=== PATIENT | female | born 1945 | race Caucasian/White ===

== ENCOUNTER → 2016-12-30 | Outpatient (CLI) | payer MEDICARE ==
[~2016-12-30] MED LIST: ADVI200C5 PO; ALBU83IN INH; AUGM875T27 PO; AZIT500T2 PO; PRED5TA PO; SYMB80INH INH; TIOT18INH INH
[2016-12-30 10:51] LABS: ALBUMIN/GLOBULIN RATIO 1.11 (1.00-1.93); BILIRUBIN,TOTAL 0.4 MG/DL (0.2-1.0); CALCIUM LEVEL 9.1 MG/DL (8.8-10.2); CREATININE FOR GFR 1.06 MG/DL (0.55-1.02); GLOMERULAR FILTRATION RATE 54.4 (>39); POTASSIUM SERUM 4.5 MEQ/L (3.5-5.1); TOTAL PROTEIN 7.6 GM/DL (6.4-8.2)
== END ==
LOC: M LAB 09:05
PROVIDERS: ATTEND Physician Assistant
DX: E78.5 Hyperlipidemia, unspecified (principal); J44.9 Chronic obstructive pulmonary disease, unspecified; E55.9 Vitamin D deficiency, unspecified

== ENCOUNTER → 2017-04-07 | Outpatient (CLI) | payer MEDICARE ==
[2017-04-07 10:17] LABS: ALBUMIN 3.7 GM/DL (3.2-5.2); ALBUMIN/GLOBULIN RATIO 1.03 (1.00-1.93); BILIRUBIN,TOTAL 0.3 MG/DL (0.2-1.0); CALCIUM LEVEL 8.9 MG/DL (8.8-10.2); CREATININE FOR GFR 0.99 MG/DL (0.55-1.02); GLOMERULAR FILTRATION RATE 58.9 (>39); POTASSIUM SERUM 4.9 MEQ/L (3.5-5.1); TOTAL PROTEIN 7.3 GM/DL (6.4-8.2)
== END ==
LOC: M LAB 08:33
PROVIDERS: ATTEND Physician Assistant
DX: E78.5 Hyperlipidemia, unspecified (principal); J44.9 Chronic obstructive pulmonary disease, unspecified; E55.9 Vitamin D deficiency, unspecified

== ENCOUNTER → 2017-06-28 | Outpatient (CLI) | payer MEDICARE ==
[~2017-06-28] MED LIST changes: -AUGM875T27 PO; +AUGM875T28 PO
[2017-06-28 07:07] LABS: BASO # 0.1 K/mm3 (0.0-0.2); BASO % 0.6 % (0.0-1.0); EOS # 0.3 K/mm3 (0.0-0.50); EOS % 2.6 % (0.0-3.0); LARGE UNSTAINED CELL # 0.2 K/mm3 (0.0-0.4); LARGE UNSTAINED CELL % 1.8 % (0.0-4.0); LYMPH # 2.2 K/mm3 (1.5-4.5); LYMPH % 16.9 % (24.0-44.0); MEAN CORPUSCULAR HEMOGLOBIN 29.4 pg (27.0-33.0); MEAN CORPUSCULAR HGB CONC 32.7 g/dl (32.0-36.5); MEAN CORPUSCULAR VOLUME 89.9 fl (80.0-96.0); MONO # 0.6 K/mm3 (0.0-0.8); MONO % 4.7 % (0.0-5.0); NEUTROPHILS # 8.7 K/mm3 (1.8-7.7); NEUTROPHILS % 73.3 % (36.0-66.0); PLATELET COUNT, AUTOMATED 365 k/mm3 (150-450); RED CELL DISTRIBUTION WIDTH 13.2 % (11.5-14.5); WHITE BLOOD COUNT 11.8 K/mm3 (4.0-10.0)
[2017-06-28 07:45] LABS: ALBUMIN 3.4 GM/DL (3.2-5.2); ALBUMIN/GLOBULIN RATIO 0.85 (1.00-1.93); ALKALINE PHOSPHATASE 134 U/L (45-117); ALT/SGPT 21 U/L (12-78); ANION GAP 7 MEQ/L (8-16); AST/SGOT 10 U/L (15-37); BILIRUBIN,TOTAL 0.4 MG/DL (0.2-1.0); BLOOD UREA NITROGEN 18 MG/DL (7-18); CALCIUM LEVEL 8.8 MG/DL (8.8-10.2); CARBON DIOXIDE LEVEL 29 MEQ/L (21-32); CHLORIDE LEVEL 102 MEQ/L (98-107); CHOLESTEROL LEVEL 116 MG/DL (<200); CREATININE FOR GFR 0.97 MG/DL (0.55-1.02); FREE T4 0.97 NG/DL (0.76-1.46); GLOMERULAR FILTRATION RATE > 60.0 (>39); GLUCOSE, FASTING 88 MG/DL (83-110); POTASSIUM SERUM 4.6 MEQ/L (3.5-5.1); SODIUM LEVEL 138 MEQ/L (136-145); TOTAL PROTEIN 7.4 GM/DL (6.4-8.2); TRIGLYCERIDES LEVEL 218 MG/DL (<150)
--- NOTE | 2017-06-28 08:54 | REP ---
CT study of the chest without IV contrast: History: Multiple pulmonary nodules. Comparison chest CT study is from February 19, 2015. July 21, 2014 prior study is also reviewed. The 2015 study showed a 3 mm nodule in the right lower lobe. CT findings: The previously noted right lower lobe nodule is no longer visible. There is no evidence of pleural or pericardial effusion. Minimal subsegmental discoid atelectatic changes are seen in the lung bases bilaterally. There are emphysematous changes in the upper lobes, right more so than left unchanged. No new infiltrate, mass, or pulmonary nodule is appreciated. There is minimal vascular calcification. One or two scattered stable normal-sized mediastinal lymph nodes are again seen. No adrenal lesion is observed. The visualized upper abdominal structures are unremarkable. There is a sliding type hiatal hernia again noted unchanged. No bony destructive lesion is appreciated. Impression: No active cardiopulmonary disease. Previously noted right lower lobe nodule no longer visible. Small sliding-type hiatal hernia. Signed by Nic Allan MD 06/28/2017 10:15 A
== END ==
LOC: M LAB 06:54
PROVIDERS: ATTEND Physician Assistant
DX: Z13.29 Encounter for screening for other suspected endocrine disorder (principal); E78.5 Hyperlipidemia, unspecified; E55.9 Vitamin D deficiency, unspecified; R91.8 Other nonspecific abnormal finding of lung field; K44.9 Diaphragmatic hernia without obstruction or gangrene

== ENCOUNTER → 2017-08-30 | Outpatient (CLI) | payer MEDICARE ==
[2017-08-30 13:53] LABS: BASO # 0.1 10^3/uL (0.0-0.2); BASO % 0.5 % (0.0-1.0); EOS # 0.4 10^3/uL (0.0-0.50); EOS % 3.5 % (0.0-3.0); IMMATURE GRANULOCYTE % 0.7 % (0-0); LYMPH # 2.9 10^3/uL (1.5-4.5); LYMPH % 26.1 % (24.0-44.0); MEAN CORPUSCULAR HEMOGLOBIN 32.2 pg (27.0-33.0); MEAN CORPUSCULAR HGB CONC 34.7 g/dl (32.0-36.5); MEAN CORPUSCULAR VOLUME 92.8 fl (80.0-96.0); MONO # 0.9 10^3/uL (0.0-0.8); MONO % 7.9 % (0.0-5.0); NEUTROPHILS # 6.7 10^3/uL (1.8-7.7); NEUTROPHILS % 61.3 % (36.0-66.0); PLATELET COUNT, AUTOMATED 393 10^3/uL (150-450); RED CELL DISTRIBUTION WIDTH 14.6 % (11.5-14.5)
[2017-08-30 14:14] LABS: ERYTHROCYTE SEDIMENTATION RATE 69 mm/hr (0-30)
[2017-08-30 14:18] LABS: ALBUMIN 3.5 GM/DL (3.2-5.2); ALBUMIN/GLOBULIN RATIO 0.81 (1.00-1.93); ALKALINE PHOSPHATASE 129 U/L (45-117); ALT/SGPT 33 U/L (12-78); ANION GAP 7 MEQ/L (8-16); AST/SGOT 19 U/L (7-37); BILIRUBIN,TOTAL 0.2 MG/DL (0.2-1.0); BLOOD UREA NITROGEN 16 MG/DL (7-18); CALCIUM LEVEL 9.5 MG/DL (8.8-10.2); CARBON DIOXIDE LEVEL 32 MEQ/L (21-32); CHLORIDE LEVEL 101 MEQ/L (98-107); GLOMERULAR FILTRATION RATE > 60.0 (>39); GLUCOSE, FASTING 77 MG/DL (83-110); POTASSIUM SERUM 4.6 MEQ/L (3.5-5.1); SODIUM LEVEL 140 MEQ/L (136-145); TOTAL PROTEIN 7.8 GM/DL (6.4-8.2)
[2017-09-01 00:07] LABS: Lyme Disease IgG/IgM Antibodie <0.91 ISR (0.00-0.90); Lyme Disease IgM Ab Quantitati <0.80 index (0.00-0.79)
== END ==
LOC: M LAB 13:04
PROVIDERS: ATTEND Physician Assistant
DX: M79.1 Myalgia (principal)

== ENCOUNTER → 2017-08-31 | Outpatient (CLI) | payer MEDICARE ==
[2017-08-31 14:49] LABS: FREE T4 0.97 NG/DL (0.76-1.46)
== END ==
LOC: M LAB 13:19
PROVIDERS: ATTEND Physician Assistant
DX: M79.1 Myalgia (principal)

== ENCOUNTER → 2017-09-13 | Outpatient (CLI) | payer MEDICARE | LOC: M LAB 12:58 | PROVIDERS: ATTEND Family Medicine | DX: M79.1 Myalgia (principal); E55.9 Vitamin D deficiency, unspecified | CPT/HCPCS: 36415; 82306; 82550; 86038; 86200; 86431; G0463 ==

== ENCOUNTER → 2017-09-27 | Outpatient (CLI) | payer MEDICARE ==
--- NOTE | 2017-09-27 17:25 | REP ---
Chest x-ray: Two views. History: Muscle weakness. Comparison chest x-ray: July 21, 2014. Findings: The lungs are symmetrically aerated and clear. Cardiomediastinal silhouette is unremarkable and unchanged. There are mild degenerative changes in the thoracic spine. Pulmonary vasculature is not increased. No significant bony abnormality is seen. Impression: No active disease. Signed by Nic Allan MD 09/28/2017 08:16 A
== END ==
LOC: M ADAMS 15:58
PROVIDERS: ATTEND Family Medicine
DX: M62.81 Muscle weakness (generalized) (principal)

== ENCOUNTER → 2017-09-27 | Outpatient (REF) | payer MEDICARE | LOC: M SFHCADAM 15:53 | PROVIDERS: ATTEND Family Medicine | DX: M62.81 Muscle weakness (generalized) (principal) ==

== ENCOUNTER → 2017-11-13 | Outpatient (REF) | payer MEDICARE ==
[2017-11-13 14:25] LABS: TOTAL 25(OH) VITAMIN D 25.5 NG/ML (30.0-100.0); VITAMIN B12 LEVEL 395 PG/ML
[2017-11-13 14:26] LABS: FOLATE 9.8 NG/ML
[2017-11-13 14:34] LABS: ALBUMIN 4.1 GM/DL (3.2-5.2); ALBUMIN/GLOBULIN RATIO 0.98 (1.00-1.93); ALKALINE PHOSPHATASE 120 U/L (45-117); ALT/SGPT 25 U/L (12-78); ANION GAP 10 MEQ/L (8-16); AST/SGOT 15 U/L (7-37); BILIRUBIN,TOTAL 0.3 MG/DL (0.2-1.0); BLOOD UREA NITROGEN 18 MG/DL (7-18); CALCIUM LEVEL 9.5 MG/DL (8.8-10.2); CARBON DIOXIDE LEVEL 26 MEQ/L (21-32); CHLORIDE LEVEL 101 MEQ/L (98-107); CREATININE FOR GFR 0.87 MG/DL (0.55-1.30); FREE THYROXINE INDEX 3.1 % (1.3-4.8); GLOMERULAR FILTRATION RATE > 60.0 (>39); GLUCOSE, FASTING 88 MG/DL (70-100); POTASSIUM SERUM 4.3 MEQ/L (3.5-5.1); RHEUMATOID FACTOR QUANT < 10.0 IU/ML (0-15.0); SODIUM LEVEL 137 MEQ/L (136-145); T UPTAKE 33 % (30-39); THYROXINE (T4) 9.4 UG/DL (4.5-12.0); TOTAL PROTEIN 8.3 GM/DL (6.4-8.2)
[2017-11-13 14:39] LABS: ESTIMATED AVERAGE GLUCOSE 120 MG/DL (60-110); HEMOGLOBIN A1c 5.8 %
[2017-11-13 16:27] LABS: ERYTHROCYTE SEDIMENTATION RATE 39 mm/hr (0-30)
[2017-11-15 11:51] LABS: ALBUMIN 4.38 GM/DL (3.29-5.55); ALBUMIN % 52.8 % (55.8-66.1)
[2017-11-15 11:52] LABS: ALPHA-1-GLOBULIN % 4.5 % (2.9-4.9); ALPHA-1-GLOBULINS 0.37 GM/DL (0.17-0.41); ALPHA-2-GLOBULINS 0.81 GM/DL (0.42-0.99); ALPHA-2-GLOBULINS % 9.7 % (7.1-11.8); BETA-1-GLOBULINS 0.51 GM/DL (0.28-0.60); BETA-1-GLOBULINS % 6.2 % (4.7-7.2); BETA-2-GLOBULINS 0.51 GM/DL (0.19-0.55); BETA-2-GLOBULINS % 6.2 % (3.2-6.5); GAMMA GLOBULIN % 20.6 % (11.1-18.8); GAMMA GLOBULINS 1.71 GM/DL (0.65-1.58)
[2017-11-17 00:08] LABS: ALDOLASE 7.2 U/L (3.3-10.3); ANTI DOUBLE STRAND-DNA AB 1 IU/mL (0-9); ANTI-HISTONE ANTIBODIES 1.3 Units (0.0-0.9); ANTINUCLEAR ANTIBODIES DIRECT Negative (Negative); CERULOPLASMIN 33.4 mg/dL (19.0-39.0); COPPER PLASMA 113 ug/dL (72-166); LEAD BLOOD ADULT 5 ug/dL (0-19); MERCURY LEVEL None Detected ug/L (0.0-14.9); RNP ANTIBODIES 0.3 AI (0.0-0.9); SJOGREN'S ANTI SS-A <0.2 AI (0.0-0.9); SJOGREN'S ANTI SS-B <0.2 AI (0.0-0.9); SMITH ANTIBODIES <0.2 AI (0.0-0.9); VITAMIN B1 LEVEL WHOLE BLOOD 139.2 nmol/L (66.5-200.0); VITAMIN B6,PYRIDOXAL PHOSPHATE 5.2 ug/L (2.0-32.8); VITAMIN E LEVEL 12.1 mg/L (6.5-21.5)
== END ==
LOC: M LABNEURO 13:22
DX: G62.9 Polyneuropathy, unspecified (principal); E55.9 Vitamin D deficiency, unspecified; R53.83 Other fatigue; M62.81 Muscle weakness (generalized); R73.01 Impaired fasting glucose
CPT/HCPCS: 82525

== ENCOUNTER → 2018-01-10 | Outpatient (REF) | payer MEDICARE | LOC: M SFHCADAM 11:28 | DX: R94.6 Abnormal results of thyroid function studies (principal) ==

== ENCOUNTER → 2018-01-12 | Outpatient (CLI) | payer MEDICARE ==
[2018-01-12 09:43] LABS: FREE T4 1.02 NG/DL (0.76-1.46)
== END ==
LOC: M LAB 08:24
DX: R94.6 Abnormal results of thyroid function studies (principal)
CPT/HCPCS: 84443

== ENCOUNTER → 2018-12-11 | Outpatient (CLI) | payer MEDICARE ==
[~2018-12-11] MED LIST changes: +ADVI100T PO; +ASPI1TAB PO; +BENA25CA4 PO; +CLAR1TAB13 PO; +IBUP200C25 PO; +METO37.5 PO; +NITR0.4S14 SL; +PLAV1TAB2 PO; +TUMS500C PO; +VITA200015 PO; +VITA200016 PO
--- NOTE | 2018-12-13 15:10 | DEXA ---
AP SPINE L1 - L4 1.076 -1.0 0.8 LT FEMUR TOTAL 0.952 -0.4 1.2 LT NECK 0.811 -1.6 0.2 RT FEMUR TOTAL 0.963 -0.4 1.3 RT NECK 0.947 -0.7 1.2 TOTAL BODY TOTAL OTHER COMMENTS: Normal bone densitometry of the right hip. There is low bone density of the spine. There is low bone density of the left hip. FOLLOW-UP: Recommendation for the next bone density exam: 2 years. MICHAEL
== END ==
LOC: M WHC 14:50
PROVIDERS: ATTEND Family Medicine
DX: M85.9 Disorder of bone density and structure, unspecified (principal); E55.9 Vitamin D deficiency, unspecified; Z79.899 Other long term (current) drug therapy

== ENCOUNTER 2018-12-16 01:20 | Emergency (ER) | payer MEDICARE ==
[~2018-12-16] VITALS: Ht 149.9 cm; Wt 87.6 kg
[~2018-12-16 01:20] MED LIST changes: -ADVI100T PO; -ASPI1TAB PO; -BENA25CA4 PO; -CLAR1TAB13 PO; -IBUP200C25 PO; -METO37.5 PO; -NITR0.4S14 SL; -PLAV1TAB2 PO; -TUMS500C PO; -VITA200015 PO; -VITA200016 PO
[2018-12-16 01:49] LABS: BASO # 0.1 10^3/uL (0.0-0.2); BASO % 0.6 % (0.0-1.0); EOS # 0.2 10^3/uL (0.0-0.50); EOS % 1.5 % (0.0-3.0); HEMATOCRIT 40.4 % (36.0-47.0); LYMPH % 16.3 % (24.0-44.0); MEAN CORPUSCULAR HEMOGLOBIN 28.2 pg (27.0-33.0); MEAN CORPUSCULAR HGB CONC 32.2 g/dl (32.0-36.5); MEAN CORPUSCULAR VOLUME 87.6 fl (80.0-96.0); MONO # 0.8 10^3/uL (0.0-0.8); MONO % 6.5 % (0.0-5.0); NEUTROPHILS # 9.2 10^3/uL (1.8-7.7); NEUTROPHILS % 74.6 % (36.0-66.0); PLATELET COUNT, AUTOMATED 350 10^3/uL (150-450); RED BLOOD COUNT 4.61 10^6/uL (4.00-5.40); WHITE BLOOD COUNT 12.3 10^3/uL (4.0-10.0)
[2018-12-16 02:12] LABS: CALCIUM LEVEL 9.9 MG/DL (8.8-10.2); CREATININE FOR GFR 1.13 MG/DL (0.55-1.30); GLOMERULAR FILTRATION RATE 50.2 (>39); MB/CK RELATIVE INDEX 1.17 (< OR =4); POTASSIUM SERUM 4.2 MEQ/L (3.5-5.1); TROPONIN I 0.11 NG/ML (< 0.10)
[2018-12-16] MEDS ORDERED: HEPARIN DRIP 25,000 UNITS in APPROPRIATE DILUENT 1 EA IV SCH (02:26)
[2018-12-16] MEDS ORDERED: METOPROLOL 5 MG/5 ML VIAL IV STA ×2 (02:26→02:36)
[2018-12-16] MEDS ORDERED: CLOPIDOGREL 300 MG TAB (PLAVIX) PO STA (02:26)
[2018-12-16] MEDS ORDERED: HEPARIN SOD (PORCINE) 5000 UNITS/ML VIAL IV ONE (02:30)
[2018-12-16] MEDS ORDERED: ASPIRIN 325 MG TAB PO ONE (02:30)
[2018-12-16] MEDS ORDERED: ASPIRIN 81 MG CHEW TABLET As Ordered ONE (02:31)
[2018-12-16 02:36] LABS: INR 0.92; PROTHROMBIN TIME 12.5 SECONDS (12.1-14.4)
[2018-12-16 02:37] LABS: PARTIAL THROMBOPLASTIN TIME 29.3 SECONDS (25.4-37.6)
[2018-12-16] MEDS ORDERED: ASPIRIN 81 MG CHEW TABLET PO ONE (02:45)
[2018-12-16] MEDS ORDERED: NITROGLYCERIN 2% OINT 1 GM *U/D* PKT TOP ONE (02:45)
[2018-12-16] MEDS ORDERED: METOPROLOL TART 25 MG TABLET PO ONE (02:45)
[2018-12-16 02:46] VITALS: BP 159/67
[2018-12-16] MEDS ORDERED: VITA200015 PO (02:54)
[2018-12-16] MEDS ORDERED: ADVI100T PO (02:54)
[2018-12-16] MEDS ORDERED: IBUP200C25 PO (02:56)
[2018-12-16] MEDS ORDERED: CLAR1TAB13 PO (02:56)
[2018-12-16 06:33] VITALS: BP 141/80
--- NOTE | 2018-12-16 06:33 | ECGEPIP ---
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
--- NOTE | 2018-12-16 07:18 | REP ---
Clinical: Acute chest pain . Comparison: 09/27/2017 or . Findings: The mediastinum and cardiac silhouette are stable and within normal limits for portable technique. The lung valdez are clear without acute consolidation, effusion, or pneumothorax. Skeletal structures are intact. Impression: No acute cardiopulmonary process appreciated. Electronically Signed by Natanael Zeng MD 12/16/2018 07:10 A
[2018-12-18] MEDS ORDERED: ASPI1TAB PO (06:54)
== END 2018-12-16 06:41 | disposition short-term general hospital (02) ==
LOC: M ED 01:20
DX: I21.4 Non-ST elevation (NSTEMI) myocardial infarction (principal); R00.0 Tachycardia, unspecified; J44.9 Chronic obstructive pulmonary disease, unspecified; Z87.891 Personal history of nicotine dependence; Z88.8 Allergy status to other drugs, medicaments and biological substances; Z79.899 Other long term (current) drug therapy; Z79.51 Long term (current) use of inhaled steroids

== ENCOUNTER 2018-12-18 06:36 | Emergency (ER) | payer MEDICARE ==
[~2018-12-18] VITALS: Ht 149.9 cm; Wt 81.8 kg
[~2018-12-18 06:36] MED LIST changes: +ADVI100T PO; +CLAR1TAB13 PO; +IBUP200C25 PO; +VITA200015 PO
[2018-12-18] MEDS ORDERED: NITR0.4S14 SL (06:54)
[2018-12-18] MEDS ORDERED: TUMS500C PO (06:54)
[2018-12-18] MEDS ORDERED: BENA25CA4 PO (06:54)
[2018-12-18] MEDS ORDERED: METO37.5 PO (06:54)
[2018-12-18] MEDS ORDERED: ASPI81TA26 PO (06:54)
[2018-12-18] MEDS ORDERED: VITA200016 PO (06:54)
[2018-12-18] MEDS ORDERED: PLAV1TAB2 PO (06:54)
[2018-12-18 07:37] LABS: BASO # 0.1 10^3/uL (0.0-0.2); BASO % 0.6 % (0.0-1.0); EOS # 0.3 10^3/uL (0.0-0.50); EOS % 2.5 % (0.0-3.0); HEMATOCRIT 38.3 % (36.0-47.0); HEMOGLOBIN 12.5 g/dl (12.0-15.5); LYMPH # 2.4 10^3/uL (1.5-4.5); MEAN CORPUSCULAR HEMOGLOBIN 28.3 pg (27.0-33.0); MEAN CORPUSCULAR HGB CONC 32.6 g/dl (32.0-36.5); MEAN CORPUSCULAR VOLUME 86.8 fl (80.0-96.0); MONO # 0.9 10^3/uL (0.0-0.8); MONO % 7.5 % (0.0-5.0); NEUTROPHILS # 8.8 10^3/uL (1.8-7.7); PLATELET COUNT, AUTOMATED 351 10^3/uL (150-450); RED BLOOD COUNT 4.41 10^6/uL (4.00-5.40); WHITE BLOOD COUNT 12.6 10^3/uL (4.0-10.0)
[2018-12-18 07:48] LABS: INR 0.98; PROTHROMBIN TIME 13.1 SECONDS (12.1-14.4)
[2018-12-18 07:49] LABS: PARTIAL THROMBOPLASTIN TIME 29.8 SECONDS (25.4-37.6)
[2018-12-18 07:57] LABS: CALCIUM LEVEL 8.4 MG/DL (8.8-10.2); CREATININE FOR GFR 1.09 MG/DL (0.55-1.30); GLOMERULAR FILTRATION RATE 52.4 (>39); POTASSIUM SERUM 4.8 MEQ/L (3.5-5.1)
--- NOTE | 2018-12-18 09:08 | REP ---
RIGHT UPPER EXTREMITY DUPLEX DOPPLER ARTERIAL ULTRASOUND: Real-time ultrasound evaluation and duplex Doppler interrogation of the right upper extremity arterial system performed. The patient had a cardiac catheter procedure 12/16/2018 and has swelling and pain. In the right wrist, the hematoma measuring 9 x 3 x 7 mm at the radial artery insertion site. All of the arteries of the upper extremity are patent with no stenosis of occlusion. Triphasic waveforms are seen throughout. Normal flow velocities are seen throughout with peak systolic velocity in the subclavian artery 128.4 cm/s, axillary artery 89.9 cm/s, brachial artery 87.6 cm/s, radial artery 49.6 cm/s and ulnar artery 85.8 cm/s. Incidental note is made of superficial thrombus in a portion of the basilic vein. IMPRESSION: Small hematoma at the radial artery catheter insertion site 9 x 3 x 7 mm. No arterial stenosis or occlusion. Superficial thrombus basilic vein incidentally noted. No pseudoaneurysm. Electronically Signed by Yuniel Merrill MD 12/18/2018 08:30 P
[2018-12-18 09:43] VITALS: BP 101/59
== END 2018-12-18 09:45 | disposition home or self-care (01) ==
LOC: M ED 06:36
DX: I97.630 Postprocedural hematoma of a circulatory system organ or structure following a cardiac catheterization (principal); I82.611 Acute embolism and thrombosis of superficial veins of right upper extremity; J44.9 Chronic obstructive pulmonary disease, unspecified; I25.10 Atherosclerotic heart disease of native coronary artery without angina pectoris; Z87.891 Personal history of nicotine dependence; Z88.8 Allergy status to other drugs, medicaments and biological substances; Z79.82 Long term (current) use of aspirin; Z79.899 Other long term (current) drug therapy

== ENCOUNTER → 2019-01-25 | Outpatient (CLI) | payer MEDICARE ==
[~2019-01-25] MED LIST changes: +ASPI81TA26 PO; +BENA25CA4 PO; +METO37.5 PO; +NITR0.4S14 SL; +PLAV1TAB2 PO; +TUMS500C PO; +VITA200016 PO
[2019-01-25 09:20] LABS: BASO # 0.1 10^3/uL (0.0-0.2); BASO % 0.6 % (0.0-1.0); EOS # 0.2 10^3/uL (0.0-0.50); HEMOGLOBIN 12.3 g/dl (12.0-15.5); LYMPH # 1.7 10^3/uL (1.5-4.5); LYMPH % 20.9 % (24.0-44.0); MEAN CORPUSCULAR HEMOGLOBIN 30.4 pg (27.0-33.0); MEAN CORPUSCULAR HGB CONC 33.2 g/dl (32.0-36.5); MEAN CORPUSCULAR VOLUME 91.4 fl (80.0-96.0); MONO # 0.6 10^3/uL (0.0-0.8); NEUTROPHILS # 5.3 10^3/uL (1.8-7.7); PLATELET COUNT, AUTOMATED 330 10^3/uL (150-450); RED BLOOD COUNT 4.05 10^6/uL (4.00-5.40); WHITE BLOOD COUNT 7.9 10^3/uL (4.0-10.0)
[2019-01-25 09:44] LABS: ALBUMIN 3.9 GM/DL (3.2-5.2); BILIRUBIN,TOTAL 0.4 MG/DL (0.2-1.0); CALCIUM LEVEL 9.1 MG/DL (8.8-10.2); CHOLESTEROL RISK RATIO 5.518 (<5); CREATININE FOR GFR 1.13 MG/DL (0.55-1.30); GLOMERULAR FILTRATION RATE 50.2 (>39); POTASSIUM SERUM 4.6 MEQ/L (3.5-5.1); TOTAL PROTEIN 7.7 GM/DL (6.4-8.2)
== END ==
LOC: M LAB 08:35
PROVIDERS: ATTEND Family Medicine
DX: J44.9 Chronic obstructive pulmonary disease, unspecified (principal); E78.5 Hyperlipidemia, unspecified; E66.9 Obesity, unspecified

== ENCOUNTER → 2019-01-25 | Outpatient (CLI) | payer MEDICARE ==
[2019-01-25 09:41] LABS: CALCIUM LEVEL 9.1 MG/DL (8.8-10.2); CHOLESTEROL RISK RATIO 5.464 (<5); CREATININE FOR GFR 1.15 MG/DL (0.55-1.30); GLOMERULAR FILTRATION RATE 49.2 (>39); POTASSIUM SERUM 4.6 MEQ/L (3.5-5.1)
== END ==
LOC: M LAB 08:30
PROVIDERS: ATTEND Internal Medicine Interventional Cardiology
DX: E78.5 Hyperlipidemia, unspecified (principal)

== ENCOUNTER → 2019-03-05 | Outpatient (CLI) | payer MEDICARE ==
[~2019-03-05] MED LIST changes: +CALC500T68 PO; +OYST1TAB PO
--- NOTE | 2019-03-05 13:34 | PFTRPT ---
Height: 60.00 Inches Weight: 186.00 Lbs BSA: 1.81 Diagnosis: R53.83 DATE OF PROCEDURE: 03/05/2019 ORDERED BY: Tamy Jc DO Spirometry: Study of excellent technical quality. Some difficulty with the required maneuvers noted. Forced vital capacity borderline. FEV1 in proportion. Obstructive index is, therefore, normal. Flow Volume Loop: Expiratory limb of the flow volume loop is reasonably normal. Lung Volumes: Total lung capacity elevated. Residual volume is reduced and does not correct for alveolar volume. Diffusing Capacity: Reduced and does not correct for alvealor volume. Hemoglobin: No hemoglobin available for correction. Airway Mechanics: Airway resistance and conductance are normal. IMPRESSION: Nonspecific limitation with diffusing capacity impairment. Cannot rule out air trapping. Please correlate clinically. DATE OF PROCEDURE: 03/05/2019 ORDERED BY: Tamy Jc DO Spirometry: Study of excellent technical quality. Forced vital capacity borderline. FEV1 in proportion. Obstructive index is, therefore, normal. Flow Volume Loop: Expiratory limb of the flow volume loop is with some borderline abnormalities. Lung Volumes: Total lung capacity mildly elevated. Residual volume suggests air trapping. Diffusing Capacity: Diffusing capacity is mildly reduced and does not correct for alveolar volume. Hemoglobin: No hemoglobin available for correction. Airway Mechanics: Airways resistance and conductance are normal. IMPRESSION: Borderline study with a degree of suspected air trapping and abnormal diffusion requires clinical correlation. MTDD
--- NOTE | 2019-03-07 09:08 | PULFX ---
DATE OF PROCEDURE: 03/05/2019 ORDERED BY: Tamy Ryder. Study of excellent technical quality. Some difficulty with required maneuvers noted. Forced vital capacity borderline. FEV1 is in proportion, obstructive index is therefore normal. Expiratory limb of the flow volume loop is reasonably normal. Total lung capacity elevated. Residual volume is reduced and does not correct for alveolar volume. No hemoglobin available for correction. Air resistance and conductance are normal. IMPRESSION: Nonspecific limitation with diffusing capacity impairment. Cannot rule out air trapping. Please correlate clinically.
== END ==
LOC: M CARPUL 09:46
PROVIDERS: ATTEND Family Medicine
DX: R53.83 Other fatigue (principal)

== ENCOUNTER → 2019-03-14 | Outpatient (RCR) | payer MEDICARE ==
--- NOTE | 2019-02-26 15:44 | CARECAPL ---
Assessment Account #s: Initial Assessment General Diagnoses: Stent, NSTEMI Date of event: Dec 24, 2018 Physician: PORFIRIO RUSSO DO Allergies: Coded Allergies: MS - Statins (Verified Allergy, Severe, 12/16/18) Uncoded Allergies: oranges (Allergy, Severe, hives, 12/18/18) pt unable to have orange flavored medication Date Entered Program: February 26, 2019 Risk strat for cardiac event: Low Exercise Date: February 26, 2019 Assessment: Initial Assessment Exercise Prescription Plan TO EDUCATE AND BUILD ENDURANCE THROUGH MONITORED EXERCISE Modalities initiated: Treadmill (WILL ADD), Nustep (WILL ADD), Arm Aerometer (WILL ADD), Dumbells (WILL ADD), Recumbent Bike (WILL ADD) Frequency: 3 Duration (Minutes) 30-60 minutes total exercise a day. 10-12 MIN work intervals in minutes. 5 MIN PRN rest intervals in minutes. Functional Capacity Goal Sustained Metabolic Equivalent of a task (MET) goal of 2.0-3.0 for 15-20 minutes. Intensity: 3-Moderate Progression (METS) Increase by: 0.5 METS every: 3-5 sessions Angina with ex: No Target Heart Rate RATE +35-40 BASED ON BETA JIM THERAPY Resistance Training: Yes Weight (pounds): 1 Reps: 8-12 Hypertension: Yes Hypertension controlled with: Medication Resting 180/83 Peak Exercise BP NOT EXERCISED TODAY Medications Scheduled Aspirin (Aspirin EC), 1 TAB PO DAILY, (Reported) Budesonide/Formoterol (Symbicort 80-4.5 Mcg Inhaler), 2 PUFF INH BID, (Reported) Calcium Carbonate (Calcium), 500 MG PO DAILY, (Reported) Cholecalciferol (Vitamin D3) (Vitamin D3), 2,000 UNIT PO DAILY, (Reported) Clopidogrel Bisulfate (Plavix), 75 MG PO DAILY, (Reported) Diphenhydramine HCl (Benadryl), 25 MG PO QPM, (Reported) Loratadine/Pseudoephedrine (Claritin-D 24 Hour Tablet), 1 TAB PO DAILY, (Reported) Metoprolol Tartrate (Metoprolol Tartrate), 25 MG PO BID, (Reported) Nitroglycerin (Nitroglycerin), 0.4 MG SL ASDIRECTED, (Reported) Tiotropium [place] Monohydrate (Spiriva), 1 INHALATION INH DAILY, (Reported) Scheduled PRN Albuterol Sulf (Albuterol Sulfate), 1 INH INH Q2H PRN for SHORTNESS OF BREATH, (Reported) Calcium Carbonate (Tums), 1-2 TAB PO Q4-6HP PRN for INDIGESTION, (Reported) Discontinued Medications Calcium Carbonate (Calcium), 500 MG PO DAILY, (Reported) Discontinued Reason: Re-entering as new Calcium Carbonate (Calcium), 500 MG PO DAILY, (Reported) Discontinued Reason: Pt states not taking Cholecalciferol (Vitamin D3) (Vitamin D3), 1 CAP PO DAILY, (Reported) Discontinued Reason: Pt states not taking Ibuprofen (Ibuprofen), 200 MG PO Q8H PRN for PAIN, (Reported) Discontinued Reason: Pt states not taking Med Change: No Intervention Resistance Training: Yes Education: Self pulse, Ex safety, S/S to report, Low NA diet, BP medication, RPE Scale, Equipment orientation, warm up/cool down, Understand BP, Physical Active Target Goals Individual exercise Rx (1) BP 140/90 or 130/80 if DM or CKD (1) Aerobic active 30+min 5 days per week (1) Nutrition Date: February 26, 2019 Assessment: Initial Assessment Lipid- med/supplement NONE Med Change: No Diabetes Diabetes: No Monitor Blood Sugar at home: No Medication Change: No Weight Management Weight (lbs): 189.2 Height (inches): 60 Waist Circumference (Inches): 46.5 BMI: 36.9 Weight goal: 135 Special Diet: low salt, low-fat Vitamin/Supplements: Multivitamin, Vitamin D Alcohol: none Diet Access Tool: Rate your plate Score: 63 Current Weight (pounds): 189.2 Weight Goal 135 Intervention Packing Room Supervisor Consult: No Nurse/patient discussion: Yes Dietary Goals TO MAKE HEART HEALTHY CHOICES Diet Class: Yes Referral to Diabetes education: No Referral to lipid clinic: No Referral to weight mangement p: No Education Eating Healthy Target goal LDL-C<100 if triglycerides are >200 Non-HDL-C should be <130 (1) LDL-C<70 for high risk patients (4) HbA1c<7% (1) BMI<25 Waist cir<40in M/<35in F (1) Education Date: February 26, 2019 Assessment: Initial Assessment Learning Barriers: ready Knowledge Test Score: 7 Family Support: Yes Tobacco use: No (SMOKED 1 PPD X 40 YEARS) Tobacco Use Date quit: May 15, 2017 Smokeless tobacco: No Intervention Referral to smoking cessation: No Individual education and couns: No Tobacco Adjunct: No Education class schedule given: No Attended education classes: No Education: tobacco triggers, CAD, Risk factors, med compliance, cardiac A&P, Angina S/S, Sexuality Target Goals Complete cessation of tobacco use (1). Psychosocial Date: February 26, 2019 Assessment: Initial Assessment Psych Test (Initial/Discharge) Tool Used: CESD Score: 0 Intervention Physician Consult: No Physician Referral: No Med Change: No Stress Management Class: No Uses Stress Management Skills: Yes Education Education: Coping Techniques, S/S depression, Relaxation Techniques Target Goal Assess presence or absence of depression using a valid screening tool (1). Maximize coping skills (2). Positive support system (2). Patient/Program Goal Preventative Medication: Yes Aspirin, Yes Clopidogrel, Yes Beta blockade Fall Risk Assess: Yes (NOT FALL RISK) Provider Assessment Session Number: 1 Provider Assessment: Proceed with rehab Jimmy Mas RN February 26, 2019 15:44
== END ==
LOC: M CR 02-26 14:11
PROVIDERS: ATTEND Family Medicine
DX: I21.4 Non-ST elevation (NSTEMI) myocardial infarction (principal)

== ENCOUNTER 2019-04-10 15:30 | Outpatient (RCR) | payer MEDICARE ==
--- NOTE | 2019-03-24 15:07 | CARECAPL ---
Assessment Account #s: Re-Assessment I General Diagnoses: Stent, NSTEMI Date of event: Dec 24, 2018 Physician: PORFIRIO RUSSO DO Allergies: Coded Allergies: MS - Statins (Verified Allergy, Severe, 12/16/18) Uncoded Allergies: oranges (Allergy, Severe, hives, 12/18/18) pt unable to have orange flavored medication Date Entered Program: February 26, 2019 Risk strat for cardiac event: Low Exercise Date: Mar 24, 2019 Assessment: Re-Assessment I Exercise Prescription Plan TO EDUCATE AND BUILD ENDURANCE THROUGH MONITORED EXERCISE Modalities initiated: Treadmill (METS=2.90/RPE=3), Nustep (METS=4.7/RPE=3), Arm Aerometer (METS=2.11/RPE=3), Recumbent Bike (METS=3.0/RPE=3) Frequency: 3 Duration (Minutes) 30-60 minutes total exercise a day. 10-15work intervals in minutes. 5 MIN TOLERATED rest intervals in minutes. Functional Capacity Goal Sustained Metabolic Equivalent of a task (MET) goal of 3.0-4.25 for 15-20 minutes. Intensity: 3-Moderate Progression (METS) Increase by: 0.5 METS every: 3-5 sessions Angina with ex: No Target Heart Rate REST+35-40 BASED ON BETA JIM THERAPY Resistance Training: Yes Weight (pounds): 3 Reps: 12-15 Hypertension: Yes Hypertension controlled with: Medication Resting 130/80 Peak Exercise BP 190/98 Medications Scheduled Aspirin (Aspirin EC), 1 TAB PO DAILY, (Reported) Budesonide/Formoterol (Symbicort 80-4.5 Mcg Inhaler), 2 PUFF INH BID, (Reported) Calcium Carbonate (Calcium), 500 MG PO DAILY, (Reported) Cholecalciferol (Vitamin D3) (Vitamin D3), 2,000 UNIT PO DAILY, (Reported) Clopidogrel Bisulfate (Plavix), 75 MG PO DAILY, (Reported) Diphenhydramine HCl (Benadryl), 25 MG PO QPM, (Reported) Loratadine/Pseudoephedrine (Claritin-D 24 Hour Tablet), 1 TAB PO DAILY, (Reported) Metoprolol Tartrate (Metoprolol Tartrate), 25 MG PO BID, (Reported) Nitroglycerin (Nitroglycerin), 0.4 MG SL ASDIRECTED, (Reported) Tiotropium [place] Monohydrate (Spiriva), 1 INHALATION INH DAILY, (Reported) Scheduled PRN Albuterol Sulf (Albuterol Sulfate), 1 INH INH Q2H PRN for SHORTNESS OF BREATH, (Reported) Calcium Carbonate (Tums), 1-2 TAB PO Q4-6HP PRN for INDIGESTION, (Reported) Current BP 118/70 Med Change: No Intervention Resistance Training: Yes Education: Self pulse, Ex safety, S/S to report, Low NA diet, BP medication, RPE Scale, Equipment orientation, warm up/cool down, Understand BP, Physical Active Target Goals Individual exercise Rx (1) BP 140/90 or 130/80 if DM or CKD (1) Aerobic active 30+min 5 days per week (1) Nutrition Date: Mar 24, 2019 Assessment: Re-Assessment I Med Change: No Diabetes Diabetes: No Monitor Blood Sugar at home: No Medication Change: No Blood sugar in range: No Weight Management Weight (lbs): 190 Special Diet: low salt, low-fat Current Weight (pounds): 190 Intervention Furnace Erector Consult: No Nurse/patient discussion: Yes Dietary Goals CHOOSE HEART HEALTHY DIET PLAN Diet Class: Yes Referral to Diabetes education: No Referral to lipid clinic: No Referral to weight mangement p: No Education Eating Healthy Target goal LDL-C<100 if triglycerides are >200 Non-HDL-C should be <130 (1) LDL-C<70 for high risk patients (4) HbA1c<7% (1) BMI<25 Waist cir<40in M/<35in F (1) Education Date: Mar 24, 2019 Assessment: Re-Assessment I Learning Barriers: ready Family Support: Yes Tobacco use: No Quit: >6 months Tobacco Use Smokeless tobacco: No Intervention Referral to smoking cessation: No Individual education and couns: No Tobacco Adjunct: No Education class schedule given: No Attended education classes: No Education: tobacco triggers, CAD, Risk factors, med compliance, cardiac A&P, Angina S/S, Sexuality Target Goals Complete cessation of tobacco use (1). Psychosocial Date: Mar 24, 2019 Assessment: Re-Assessment I Intervention Physician Consult: No Physician Referral: No Med Change: No Stress Management Class: No Uses Stress Management Skills: Yes Education Education: Coping Techniques, S/S depression, Relaxation Techniques Target Goal Assess presence or absence of depression using a valid screening tool (1). Maximize coping skills (2). Positive support system (2). Patient/Program Goal Preventative Medication: Yes Aspirin, Yes Clopidogrel, Yes Beta blockade Fall Risk Assess: Yes Provider Assessment Session Number: 5 Provider Assessment: Proceed with rehab Jimmy Mas RN Mar 24, 2019 15:07
== END 2019-04-13 ==
LOC: M CR 15:30
PROVIDERS: ATTEND Family Medicine
DX: I21.4 Non-ST elevation (NSTEMI) myocardial infarction (principal)

== ENCOUNTER → 2019-05-14 | Outpatient (RCR) | payer MEDICARE ==
--- NOTE | 2019-04-24 16:39 | CARECAPL ---
Assessment Account #s: Re-Assessment II General Diagnoses: Stent, NSTEMI Date of event: Dec 24, 2018 Physician: PORFIRIO RUSSO DO Allergies: Coded Allergies: MS - Statins (Verified Allergy, Severe, 12/16/18) Uncoded Allergies: oranges (Allergy, Severe, hives, 12/18/18) pt unable to have orange flavored medication Date Entered Program: February 26, 2019 Risk strat for cardiac event: High Exercise Assessment: Re-Assessment II Exercise Prescription Plan TO EDUCATE AND BUILD ENDURANCE THROUGH MONITORED EXERCISE Modalities initiated: Treadmill (METS=3.26/RPE=2), Nustep (METS=4.6/RPE=3), Arm Aerometer (METS=2.8/RPE=3), Dumbells (5#/RPE=2), Recumbent Bike (METS=2.6/RPE=3) Frequency: 3 Duration (Minutes) 30-60 minutes total exercise a day. 12-15 work intervals in minutes. 5 MIN PRN rest intervals in minutes. Functional Capacity Goal Sustained Metabolic Equivalent of a task (MET) goal of 3.0-4.25 for 15-20 minutes. Intensity: 3-Moderate Progression (METS) Increase by: METS every: sessions Angina with ex: No Target Heart Rate REST +35-40 BASED ON BETA JIM THERAPY Resistance Training: Yes Weight (pounds): 5 Reps: 12-15 Hypertension: Yes Hypertension controlled with: Medication Resting 130/86 Peak Exercise BP 180/120 Medications Scheduled Aspirin (Aspirin EC), 1 TAB PO DAILY, (Reported) Budesonide/Formoterol (Symbicort 80-4.5 Mcg Inhaler), 2 PUFF INH BID, (Reported) Calcium Carbonate (Calcium), 500 MG PO DAILY, (Reported) Cholecalciferol (Vitamin D3) (Vitamin D3), 2,000 UNIT PO DAILY, (Reported) Clopidogrel Bisulfate (Plavix), 75 MG PO DAILY, (Reported) Diphenhydramine HCl (Benadryl), 25 MG PO QPM, (Reported) Loratadine/Pseudoephedrine (Claritin-D 24 Hour Tablet), 1 TAB PO DAILY, (Reported) Metoprolol Tartrate (Metoprolol Tartrate), 25 MG PO BID, (Reported) Nitroglycerin (Nitroglycerin), 0.4 MG SL ASDIRECTED, (Reported) Tiotropium [place] Monohydrate (Spiriva), 1 INHALATION INH DAILY, (Reported) Scheduled PRN Albuterol Sulf (Albuterol Sulfate), 1 INH INH Q2H PRN for SHORTNESS OF BREATH, (Reported) Calcium Carbonate (Tums), 1-2 TAB PO Q4-6HP PRN for INDIGESTION, (Reported) Current BP 120/70 Med Change: No Intervention Resistance Training: Yes Education: Self pulse, Ex safety, S/S to report, Low NA diet, BP medication, RPE Scale, Equipment orientation, warm up/cool down, Understand BP, Physical Active Target Goals Individual exercise Rx (1) BP 140/90 or 130/80 if DM or CKD (1) Aerobic active 30+min 5 days per week (1) Nutrition Date: Apr 24, 2019 Assessment: Re-Assessment II Lipid- med/supplement PATIENT HAS ALLERGY TO STATINS Med Change: No Diabetes Diabetes: No Monitor Blood Sugar at home: No Medication Change: No Blood sugar in range: No Weight Management Weight (lbs): 188 Special Diet: low salt, low-fat Vitamin/Supplements: Vitamin D Current Weight (pounds): 188 Intervention Staff Assistant Consult: No Nurse/patient discussion: Yes Dietary Goals TO MAKE HEART HEALTHY CHOICES Diet Class: Yes (WILL SEE TECHNOLOGY METHODOLOGY CONSULTANT WHILE IN PROGRAM) Referral to Diabetes education: No Referral to lipid clinic: No Referral to weight mangement p: No Education Eating Healthy Target goal LDL-C<100 if triglycerides are >200 Non-HDL-C should be <130 (1) LDL-C<70 for high risk patients (4) HbA1c<7% (1) BMI<25 Waist cir<40in M/<35in F (1) Education Date: Apr 24, 2019 Assessment: Re-Assessment II Learning Barriers: ready Family Support: Yes Tobacco use: No Quit: >6 months (QUIT 2 YEARS AGO) Tobacco Use Smokeless tobacco: No Intervention Referral to smoking cessation: No Individual education and couns: No Tobacco Adjunct: No Education class schedule given: No Attended education classes: No Education: tobacco triggers, CAD, Risk factors, med compliance, cardiac A&P, Angina S/S, Sexuality Target Goals Complete cessation of tobacco use (1). Psychosocial Date: Apr 24, 2019 Assessment: Re-Assessment II Intervention Physician Consult: No Physician Referral: No Med Change: No Stress Management Class: No Uses Stress Management Skills: Yes Education Education: Coping Techniques, S/S depression, Relaxation Techniques Target Goal Assess presence or absence of depression using a valid screening tool (1). Maximize coping skills (2). Positive support system (2). Patient/Program Goal Preventative Medication: Yes Aspirin, Yes Clopidogrel, Yes Beta blockade Fall Risk Assess: Yes (NOT A FALL RISK) Provider Assessment Session Number: 11 Provider Assessment: Proceed with rehab Jimmy Mas RN Apr 24, 2019 16:39
== END ==
LOC: M CR 04-16 10:21
PROVIDERS: ATTEND Family Medicine
DX: I21.4 Non-ST elevation (NSTEMI) myocardial infarction (principal)

== ENCOUNTER → 2019-08-09 | Outpatient (CLI) | payer MEDICARE ==
[~2019-08-09] MED LIST changes: -AZIT500T2 PO; +AZIT500T5 PO
[2019-08-09 09:29] LABS: CALCIUM LEVEL 8.9 MG/DL (8.8-10.2); CHOLESTEROL RISK RATIO 5.296 (<5); CREATININE FOR GFR 1.1 MG/DL (0.55-1.30); GLOMERULAR FILTRATION RATE 51.8 (>39); POTASSIUM SERUM 4.5 MEQ/L (3.5-5.1)
== END ==
LOC: M LAB 08:24
PROVIDERS: ATTEND Internal Medicine Interventional Cardiology
DX: E78.2 Mixed hyperlipidemia (principal)

== ENCOUNTER 2020-03-03 07:42 | Inpatient (IN) | payer MEDICARE ==
[2020-03-03] VITALS (7 sets, daily range): BP systolic 119–149; BP diastolic 57–83
[~2020-03-03] VITALS: Ht 162.6 cm; Wt 88.4 kg
[2020-03-03] MEDS ORDERED: NS 1,000 ML IV ONE (08:15)
[2020-03-03] MEDS ORDERED: ONDANSETRON 4MG/2ML VIAL IV ONE (08:15)
[2020-03-03] MEDS ORDERED: fentaNYL 100 MCG/2 ML INJECTION (J3010) IV ONE (08:30)
[2020-03-03] MEDS ORDERED: ACETAMINOPHEN TAB 650MG DOSE (2X325MG) PO ONE (08:30)
[2020-03-03 08:33] LABS: BASO % 0.3 % (0.0-1.0); EOS # 0.1 10^3/uL (0.0-0.5); EOS % 0.4 % (0.0-3.0); HEMATOCRIT 40.3 % (36.0-47.0); HEMOGLOBIN 13.1 g/dl (12.0-15.5); LYMPH # 1.4 10^3/uL (1.5-5.0); LYMPH % 10.8 % (24.0-44.0); MEAN CORPUSCULAR HEMOGLOBIN 30.3 pg (27.0-33.0); MEAN CORPUSCULAR HGB CONC 32.5 g/dl (32.0-36.5); MEAN CORPUSCULAR VOLUME 93.3 fl (80.0-96.0); MONO # 0.9 10^3/uL (0.0-0.8); MONO % 6.9 % (0.0-5.0); NEUTROPHILS # 10.1 10^3/uL (1.5-8.5); NEUTROPHILS % 81.2 % (36.0-66.0); PLATELET COUNT, AUTOMATED 326 10^3/uL (150-450); RED BLOOD COUNT 4.32 10^6/uL (4.00-5.40); WHITE BLOOD COUNT 12.5 10^3/uL (4.0-10.0)
[2020-03-03] MEDS ORDERED: ISOVUE-370 76% 100ML VIAL As Ordered ONE (08:42)
[2020-03-03 09:03] LABS: ALBUMIN 3.7 GM/DL (3.2-5.2); ALT/SGPT 30 U/L (12-78); BILIRUBIN,DIRECT 0.2 MG/DL (0.0-0.2); BILIRUBIN,TOTAL 0.6 MG/DL (0.2-1.0); CK-MB VALUE MASS < 1.0 NG/ML (<3.6); CPK CREATINE PHOSPHOKINASE 70 U/L (26-192); LIPASE 43 U/L (73-393); MB/CK RELATIVE INDEX 1.43 (< OR =4); TOTAL PROTEIN 7.5 GM/DL (6.4-8.2); TROPONIN I < 0.02 NG/ML (< 0.10)
[2020-03-03] MEDS ORDERED: PIPERACILLIN/TAZOBACTAM SOD 3.375 GM in D5W MINI-BAG PLUS 50 ML IV ONE (09:45)
--- NOTE | 2020-03-03 09:56 | REP ---
CT ABDOMEN AND PELVIS WITH IV CONTRAST: TECHNIQUE: Axial contrast enhanced images from the lung bases to the pubic symphysis using 100 mL Isovue-370 intravenous contrast material with multiplanar reformations. Visualized lung bases demonstrate no infiltrate. The liver, spleen, adrenals, pancreas and kidneys are unremarkable. There is no abdominal aortic aneurysm with mild atherosclerotic calcification. Scattered tiny lymph nodes are seen in the mesentery particularly in the right lower quadrant. There is no significant adenopathy. There is a small umbilical hernia containing fat. There is mild inflammation of the fat. There is a subcentimeter appendicolith seen at the base of the appendix. The appendix is dilated and there is wall thickening and periappendiceal fat inflammation. There is also a tiny amount of extraluminal air and fluid adjacent to the distal appendix. The finding are consistent with appendicitis with microperforation. Otherwise, no other area of free fluid or abscess is seen. No pelvic mass is seen. Urinary bladder is mildly distended and grossly unremarkable. There is a small hiatal hernia. IMPRESSION: Findings consistent with appendicitis. Subcentimeter appendicolith is seen at the base of the appendix. The appendix is dilated and inflamed and there is a tiny amount of extraluminal air and fluid adjacent to the appendix consistent with microperforation. Tien Ga was informed of these findings at the time of the exam by telephone. Electronically Signed by Yuniel Merrill MD 03/03/2020 04:39 P
[2020-03-03] MEDS ORDERED: EZET10TA21 PO (09:58)
[2020-03-03] MEDS ORDERED: METOPROLOL TART 25 MG TABLET PO ONE (10:00)
[2020-03-03] MEDS ORDERED: METO50TA7 PO (10:13)
[2020-03-03] MEDS ORDERED: METOPROLOL TART 50 MG TAB PO ONE (10:30)
[2020-03-03] MEDS ORDERED: SYMB16INH INH (10:48)
[2020-03-03] MEDS ORDERED: SPIR1CAP INH (10:48)
[2020-03-03] MEDS ORDERED: CLAR10TA7 PO (10:48)
[2020-03-03] MEDS ORDERED: VITAD1000T PO (10:48)
[2020-03-03] MEDS ORDERED: BUPIVACAINE HCL 0.25% 30ML VIAL As Ordered ONE (12:04)
[2020-03-03] MEDS ORDERED: LIDOCAINE 1% SDV 30ML VIAL As Ordered ONE (12:05)
[2020-03-03] MEDS ORDERED: fentaNYL 100 MCG/2 ML INJECTION (J3010) As Ordered ONE (12:41)
[2020-03-03] MEDS ORDERED: SUGAMMADEX SODIUM 500 MG/5 ML VIAL (BRIDION) As Ordered ONE ×2 (12:41→13:06)
[2020-03-03] MEDS ORDERED: propofoL 200 MG/20 ML VIAL As Ordered ONE (12:41)
[2020-03-03] MEDS ORDERED: dexameTHASONE 4 MG/ML 1ML VIAL (J1100 PER 1MG) As Ordered ONE (12:41)
[2020-03-03] MEDS ORDERED: MIDAZOLAM INJ 2MG/2ML VIAL (J2250 PER 1MG) As Ordered ONE (12:41)
[2020-03-03] MEDS ORDERED: ONDANSETRON 4MG/2ML VIAL As Ordered ONE (12:41)
[2020-03-03] MEDS ORDERED: LIDOCAINE 2% 100MG/5ML SDV (FOR ANES.) As Ordered ONE (12:41)
[2020-03-03] MEDS ORDERED: ROCURONIUM BROMIDE 50 MG/5 ML VIAL As Ordered ONE (12:41)
[2020-03-03] MEDS ORDERED: ETOMIDATE INJ 20MG/10ML VIAL As Ordered ONE (12:41)
[2020-03-03] MEDS ORDERED: KETAMINE HCL 200 MG/20 ML VIAL As Ordered ONE (12:45)
[2020-03-03] MEDS ORDERED: ACETAMINOPHEN 1000MG 100ML IV BTL (OFIRMEV) (J0131 PER 10MG) As Ordered ONE (12:53)
[2020-03-03] MEDS ORDERED: PHENYLephrine HCL 500 MCG/5 ML (100MCG/ML) SYRINGE (J2370) As Ordered ONE ×2 (13:31→13:32)
[2020-03-03] MEDS ORDERED: LR 1,000 ML IV SCH ×2 (13:39→14:30)
[2020-03-03] MEDS ORDERED: ONDANSETRON 4MG/2ML VIAL IV PRN ×2 (13:45→14:30)
[2020-03-03] MEDS ORDERED: LORATADINE 10 MG TAB PO PRN (13:45)
[2020-03-03] MEDS ORDERED: PERCOCET 5MG/325MG TAB PO PRN ×2 (13:45→14:30)
[2020-03-03] MEDS ORDERED: diphenhydrAMINE 25MG CAP PO PRN (13:45)
[2020-03-03] MEDS ORDERED: ACETAMINOPHEN TAB 650MG DOSE (2X325MG) PO PRN (13:45)
[2020-03-03] MEDS ORDERED: NITROGLYCERIN 0.4 MG SUBL TABLET SL PRN (13:45)
[2020-03-03] MEDS ORDERED: ALBUTEROL SULFATE 2.5 MG/0.5 ML INH NEB SOLN INH PRN (13:45)
[2020-03-03] MEDS ORDERED: KETOROLAC 30 MG/ML 1ML VIAL IV PRN (13:45)
--- NOTE | 2020-03-03 14:18 | ECGEPIP ---
[facility] Test Date: 2020-03-03 Pat Name: ZULMA MARTIN Department: Room: - Gender: Female Flatbed Stitcher: [facility] : 1945 Requested By: LOYDA Franklin Order Number: [id number] Reading MD: Melissa Butt Measurements Intervals [place] Rate: 118 P: 66 ND: 174 QRS: 41 QRSD: 82 T: 52 QT: 340 QTc: 478 Interpretive Statements SINUS TACHYCARDIA LOW QRS VOLTAGE IN PRECORDIAL LEADS ( GENERALIZED LOW VOLTAGE) NONSPECIFIC T-WAVE ABNORMALITY QTC PROLONGED DECREASE VOLTAGE NEW IMPROVED R WAVE PROGRESSION C/W 12/16/18 Electronically Signed on 03-03-2020 14:18:33 EDT by Melissa Butt
[2020-03-03] MEDS ORDERED: METOCLOPRAMIDE INJ 10MG/2ML VIAL (J2765 PER 1) IV PRN (14:30)
[2020-03-03] MEDS ORDERED: LACTATED RINGER'S 1000 ML IV ONE (14:30)
[2020-03-03] MEDS ORDERED: fentaNYL 100 MCG/2 ML INJECTION (J3010) IV PRN (14:30)
[2020-03-03] MEDS ORDERED: NS 1,000 ML IV SCH (16:00)
[2020-03-03] MEDS: PANTOPRAZOLE 40MG VIAL (C9113 PER 1) IV SCH (17:47)
[2020-03-03] MEDS: PIPERACILLIN/TAZOBACTAM SOD 3.375 GM in D5W MINI-BAG PLUS 50 ML IV SCH ×2 (17:47→21:52)
[2020-03-03] MEDS: EZETIMIBE 10 MG TAB (ZETIA) PO SCH (17:47)
[2020-03-03] MEDS: SYMBICORT 160/4.5MCG INHALER 6GM INH SCH (20:12)
[2020-03-03] MEDS: TIOTROPIUM INHALER/CAPSULE (SPIRIVA) INH SCH (20:13)
[2020-03-03] MEDS: METOPROLOL TART 50 MG TAB PO SCH (21:00)
[2020-03-03] MEDS: SENOKOT S TAB PO SCH (21:53)
[2020-03-03] MEDS: VITAMIN D 1,000 INTERNATIONAL UNITS TABLET PO SCH (21:53)
[2020-03-03] MEDS: PERCOCET 5MG/325MG TAB PO PRN (21:53)
[2020-03-03] MEDS: OYSTER SHELL CALCIUM 500 MG TAB PO SCH (21:53)
[2020-03-03] MEDS: ASPIRIN 81 MG ENTERIC TAB PO SCH (21:53)
[2020-03-03] MEDS: ENOXAPARIN 40MG/0.4ML SYRINGE (J1650 PER 10MG) SC SCH (21:53)
[2020-03-04] VITALS: BP 100/60
[2020-03-04 04:00] VITALS: BP 141/63
[2020-03-04] MEDS: PERCOCET 5MG/325MG TAB PO PRN ×3 (04:32→21:54)
[2020-03-04] MEDS: PIPERACILLIN/TAZOBACTAM SOD 3.375 GM in D5W MINI-BAG PLUS 50 ML IV SCH ×4 (04:32→21:54)
[2020-03-04 05:12] LABS: HEMATOCRIT 35.9 % (36.0-47.0); HEMOGLOBIN 11.6 g/dl (12.0-15.5); MEAN CORPUSCULAR HEMOGLOBIN 29.8 pg (27.0-33.0); MEAN CORPUSCULAR HGB CONC 32.3 g/dl (32.0-36.5); MEAN CORPUSCULAR VOLUME 92.3 fl (80.0-96.0); PLATELET COUNT, AUTOMATED 271 10^3/uL (150-450); RED BLOOD COUNT 3.89 10^6/uL (4.00-5.40); WHITE BLOOD COUNT 17.6 10^3/uL (4.0-10.0)
[2020-03-04 05:25] LABS: CREATININE FOR GFR 1.29 MG/DL (0.55-1.30)
[2020-03-04 05:28] LABS: ATYPICAL LYMPH 1 % (0-5); LYMPHOCYTES 9 % (16-44); METAMYELOCYTES 1 % (0-0); MONOCYTES 3 % (0-5); NEUTROPHILS 80 % (28-66); PLATELET ESTIMATE NORMAL (NORMAL)
[2020-03-04] MEDS: TIOTROPIUM INHALER/CAPSULE (SPIRIVA) INH SCH (07:17)
[2020-03-04] MEDS: SYMBICORT 160/4.5MCG INHALER 6GM INH SCH ×2 (07:17→19:24)
[2020-03-04 08:00] VITALS: BP 132/89
[2020-03-04] MEDS: PANTOPRAZOLE 40MG VIAL (C9113 PER 1) IV SCH (09:49)
[2020-03-04] MEDS: EZETIMIBE 10 MG TAB (ZETIA) PO SCH (09:50)
[2020-03-04] MEDS: METOPROLOL TART 50 MG TAB PO SCH ×2 (09:50→21:53)
[2020-03-04] MEDS: SENOKOT S TAB PO SCH ×2 (09:50→21:53)
[2020-03-04] MEDS: CLOPIDOGREL 75 MG TAB PO SCH (09:50)
[2020-03-04 12:00] VITALS: BP 134/89
[2020-03-04 13:12] VITALS: BP 110/68
[2020-03-04 20:12] VITALS: BP 120/72
[2020-03-04] MEDS: OYSTER SHELL CALCIUM 500 MG TAB PO SCH (21:53)
[2020-03-04] MEDS: VITAMIN D 1,000 INTERNATIONAL UNITS TABLET PO SCH (21:53)
[2020-03-04] MEDS: ASPIRIN 81 MG ENTERIC TAB PO SCH (21:53)
[2020-03-04] MEDS: ENOXAPARIN 40MG/0.4ML SYRINGE (J1650 PER 10MG) SC SCH (21:55)
[2020-03-05] MEDS: PIPERACILLIN/TAZOBACTAM SOD 3.375 GM in D5W MINI-BAG PLUS 50 ML IV SCH ×2 (04:43→09:22)
[2020-03-05 06:00] VITALS: BP 134/76
[2020-03-05 07:02] LABS: BASO % 0.1 % (0.0-1.0); EOS # 0.1 10^3/uL (0.0-0.5); EOS % 0.6 % (0.0-3.0); HEMATOCRIT 36.4 % (36.0-47.0); HEMOGLOBIN 11.7 g/dl (12.0-15.5); LYMPH # 1.8 10^3/uL (1.5-5.0); LYMPH % 12.8 % (24.0-44.0); MEAN CORPUSCULAR HGB CONC 32.1 g/dl (32.0-36.5); MEAN CORPUSCULAR VOLUME 93.3 fl (80.0-96.0); MONO # 0.7 10^3/uL (0.0-0.8); MONO % 4.9 % (0.0-5.0); NEUTROPHILS # 11.5 10^3/uL (1.5-8.5); NEUTROPHILS % 80.9 % (36.0-66.0); PLATELET COUNT, AUTOMATED 289 10^3/uL (150-450); WHITE BLOOD COUNT 14.3 10^3/uL (4.0-10.0)
[2020-03-05] MEDS: SYMBICORT 160/4.5MCG INHALER 6GM INH SCH (07:11)
[2020-03-05] MEDS: TIOTROPIUM INHALER/CAPSULE (SPIRIVA) INH SCH (07:11)
[2020-03-05] MEDS: PERCOCET 5MG/325MG TAB PO PRN (07:19)
[2020-03-05 07:23] LABS: CALCIUM LEVEL 8.4 MG/DL (8.8-10.2); CREATININE FOR GFR 1.2 MG/DL (0.55-1.30); GLOMERULAR FILTRATION RATE 46.8 (>39); POTASSIUM SERUM 4.1 MEQ/L (3.5-5.1)
[2020-03-05] MEDS: SENOKOT S TAB PO SCH (09:22)
[2020-03-05] MEDS: EZETIMIBE 10 MG TAB (ZETIA) PO SCH (09:22)
[2020-03-05 09:23] VITALS: BP 134/76
[2020-03-05] MEDS: CLOPIDOGREL 75 MG TAB PO SCH (09:23)
[2020-03-05] MEDS: PANTOPRAZOLE 40MG VIAL (C9113 PER 1) IV SCH (09:23)
[2020-03-05] MEDS: METOPROLOL TART 50 MG TAB PO SCH (09:23)
[2020-03-05] MEDS ORDERED: AUGM875T28 PO (09:55)
[2020-03-05] MEDS ORDERED: METR-265 PO (09:55)
[2020-03-05] MEDS ORDERED: PERCOCET PO (09:55)
--- NOTE | 2020-03-05 09:59 | IPNPDOC ---
Text Note Date of Service The patient was seen on 03/04/20. NOTE Patient feels better. Immediately postop was mildly hypotensive, tachycardic but has improved. She is afebrile POD1 Lap appendectomy for perforated appendicitis OK to transfer to regular floor cont drain advance diet cont zosyn, awaiting culture results Drain is still significant in amount and has murky serous (inflammatory) fluid. Prob may need to go home with the drain if stable enough to go home tomorrow VS,Virgil, I+O VS, Virgil I+O Laboratory Tests 03/05/20 06:31 Vital Signs Date Time Temp Pulse Resp B/P (MAP) Pulse Ox O2 Delivery O2 Flow Rate FiO2 03/05/20 09:23 90 134/76 03/05/20 08:00 16 03/05/20 06:00 97.9 91 Room Air 03/04/20 08:00 2.0 I&O- Last 24 Hours up to 6 AM 03/05/20 06:00 Intake Total 2280 ml Output Total 126 ml Balance 2154 ml LOYDA JEAN BAPTISTE MD March 05, 2020 09:59
--- NOTE | 2020-03-05 10:28 | IPNPDOC ---
Text Note Date of Service The patient was seen on 03/05/20. NOTE Patient doing much better. Reports minimal discomfort. She is tolerating regular diet, no BMs yet, passing flatus VS: She has been afebrile postop Her tachycardia has resolved HD stable Her abdomen is a lot softer, less distended today. Remains protuberant and markedly rounded. Her port sites are clean, dry and intact. Her drain is putting out some murky-appearing serous fluid most likely postinflammatory. Nontender on palpation. Labs shows continued leukocytosis but better down to 14,000 Impression and plan Postop day 2 following laparoscopic appendectomy for perforated appendicitis I think she is stable enough to discharge home with a drain. I would like to see her on Sunday to see if we can remove the drain. I'll send her home on Augmentin and Flagyl. Her cultures so far is growing Escherichia coli, anaerobic cultures still not finished. Tonsillectomy nurse to instruct her in how to take care of the drain and have her report to me the drain amount over the weekend. VS,Virgil, I+O VS, Virgil, I+O Laboratory Tests 03/05/20 06:31 Vital Signs Date Time Temp Pulse Resp B/P (MAP) Pulse Ox O2 Delivery O2 Flow Rate FiO2 03/05/20 09:23 90 134/76 03/05/20 08:00 16 03/05/20 06:00 97.9 91 Room Air 03/04/20 08:00 2.0 I&O- Last 24 Hours up to 6 AM 03/05/20 06:00 Intake Total 2280 ml Output Total 126 ml Balance 2154 ml LOYDA JEAN BAPTISTE MD March 05, 2020 09:57
== END 2020-03-05 12:05 | disposition home or self-care (01) | DRG 340 ==
LOC: M ED 07:42 → EDBD 07:42 → EDSEX 07:42 → M ED 11:47 → M ED INP 13:39 → M PCU 16:40 → M MS5PR 03-04 13:00
PROVIDERS: ADMIT Surgery; ATTEND Surgery
PROC: 0DTJ4ZZ Resection of Appendix, Percutaneous Endoscopic Approach (ICD-10-PCS; principal; 2020-03-03 10:17)
DX: K35.32 Acute appendicitis with perforation, localized peritonitis, and gangrene, without abscess (principal); I95.81 Postprocedural hypotension; R00.0 Tachycardia, unspecified

== ENCOUNTER → 2020-05-08 | Outpatient (CLI) | payer MEDICARE ==
[~2020-05-08] MED LIST changes: +CLAR10TA7 PO; +D31000TA2 PO; +EZET10TA21 PO; +METO50TA7 PO; +METR-265 PO; +PERCOCET PO; +SPIR1CAP INH; +SYMB16INH INH
[2020-06-12 09:59] LABS: BASO # 0.1 10^3/uL (0.0-0.2); BASO % 0.8 % (0.0-1.0); EOS # 0.3 10^3/uL (0.0-0.5); EOS % 4.6 % (0.0-3.0); HEMATOCRIT 27.8 % (36.0-47.0); HEMOGLOBIN 12.2 g/dl (12.0-15.5); LYMPH # 1.6 10^3/uL (1.5-5.0); LYMPH % 21.6 % (24.0-44.0); MEAN CORPUSCULAR HEMOGLOBIN 42.7 pg (27.0-33.0); MEAN CORPUSCULAR HGB CONC 43.9 g/dl (32.0-36.5); MEAN CORPUSCULAR VOLUME 97.2 fl (80.0-96.0); MONO # 0.5 10^3/uL (0.0-0.8); MONO % 6.9 % (0.0-5.0); NEUTROPHILS # 4.9 10^3/uL (1.5-8.5); NEUTROPHILS % 65.8 % (36.0-66.0); PLATELET COUNT, AUTOMATED 280 10^3/uL (150-450); RED BLOOD COUNT 2.86 10^6/uL (4.00-5.40); WHITE BLOOD COUNT 7.4 10^3/uL (4.0-10.0)
[2020-06-28 09:26] LABS: BILIRUBIN,TOTAL 0.4 MG/DL (0.2-1.0); CALCIUM LEVEL 8.6 MG/DL (8.8-10.2); CHOLESTEROL RISK RATIO 4.785 (<5); CREATININE FOR GFR 1.06 MG/DL (0.55-1.30); GLOMERULAR FILTRATION RATE 53.9 (>39); LDL CHOLESTEROL 50.4 MG/DL (<100); POTASSIUM SERUM 4.6 MEQ/L (3.5-5.1)
[2020-06-28 09:27] LABS: TOTAL PROTEIN 7.4 GM/DL (6.4-8.2)
[2020-06-28 09:28] LABS: ALBUMIN 3.4 GM/DL (3.2-5.2); THYROID STIMULATING HORMONE 2.61 uIU/ML (0.358-3.740)
== END ==
LOC: M LAB 09:40
PROVIDERS: ATTEND Family Medicine
DX: I25.2 Old myocardial infarction (principal)

== ENCOUNTER → 2020-05-08 | Outpatient (CLI) | payer MEDICARE ==
[2020-06-28 09:23] LABS: CREATININE FOR GFR 1.06 MG/DL (0.55-1.30); GLOMERULAR FILTRATION RATE 53.9 (>39); POTASSIUM SERUM 4.6 MEQ/L (3.5-5.1)
[2020-06-28 09:24] LABS: CALCIUM LEVEL 8.6 MG/DL (8.8-10.2)
[2020-06-28 09:25] LABS: CHOLESTEROL RISK RATIO 5.035 (<5); LDL CHOLESTEROL 56.8 MG/DL (<100)
== END ==
LOC: M LAB 09:30
PROVIDERS: ATTEND Internal Medicine Interventional Cardiology
DX: I10 Essential (primary) hypertension (principal); E78.5 Hyperlipidemia, unspecified

== ENCOUNTER → 2021-04-22 | Outpatient (CLI) | payer MEDICARE ==
[~2021-04-22] MED LIST changes: +FAMO40TA3 PO
== END ==
LOC: M LABSMTC 12:42
PROVIDERS: ATTEND Anesthesiology
DX: Z01.812 Encounter for preprocedural laboratory examination (principal)

== ENCOUNTER 2021-04-27 12:36 | Day surgery (SDC) | payer MEDICARE ==
[~2021-04-27] VITALS: Ht 152.4 cm; Wt 84.8 kg
[~2021-04-27 12:36] MED LIST changes: +NS 1,000 ML IV ONE
[2021-04-27] MEDS ORDERED: propofoL 200 MG/20 ML VIAL As Ordered ONE (15:14)
[2021-04-27] MEDS ORDERED: LIDOCAINE 2% 100MG/5ML SDV (FOR ANES.) As Ordered ONE (15:14)
[2021-04-27] MEDS ORDERED: fentaNYL 100 MCG/2 ML INJECTION (J3010) As Ordered ONE (15:15)
[2021-04-27] MEDS ORDERED: SIMETHICONE 40MG/0.6ML DROPS 30ML As Ordered ONE (15:17)
--- NOTE | 2021-04-27 15:55 | ROOR ---
Patient Name: Yaneli Rouse Procedure Date: 04/27/2021 3:32 PM Date of : 1945 Age: 75 Room: [facility] Gender: Female Note Status: Finalized Procedure: Upper GI endoscopy Indications: Epigastric abdominal pain, Heartburn Providers: Jose Hsieh MD Referring MD: Tamy Jc DO Requesting Provider: Medicines: Monitored Anesthesia Care Complications: No immediate complications. Procedure: Pre-Anesthesia Assessment: - Prior to the procedure, a History and Physical was performed, and patient medications and allergies were reviewed. The patient is competent. The risks and benefits of the procedure and the sedation options and risks were discussed with the patient. All questions were answered and informed consent was obtained. Patient identification and proposed procedure were verified by the physician, the nurse and the bark grinder in the endoscopy suite. Mental Status Examination: alert and oriented. Airway Examination: normal oropharyngeal airway and neck mobility. Respiratory Examination: clear to auscultation. CV Examination: normal. Prophylactic Antibiotics: The patient does not require prophylactic antibiotics. Prior Anticoagulants: The patient has taken Plavix (clopidogrel), last dose was 7 days prior to procedure. ASA Grade Assessment: III - A patient with severe systemic disease. After reviewing the risks and benefits, the patient was deemed in satisfactory condition to undergo the procedure. The anesthesia plan was to use monitored anesthesia care (MAC). Immediately prior to administration of medications, the patient was re-assessed for adequacy to receive sedatives. The heart rate, respiratory rate, oxygen saturations, blood pressure, adequacy of pulmonary ventilation, and response to care were monitored throughout the procedure. The physical status of the patient was re-assessed after the procedure. The Endoscope was introduced through the mouth, and advanced to the second part of duodenum. The upper GI endoscopy was accomplished without difficulty. The patient tolerated the procedure well. Findings: LA Grade A (one or more mucosal breaks less than 5 mm, not extending between tops of 2 mucosal folds) esophagitis with no bleeding was found 37 cm from the incisors. Biopsies were taken with a cold forceps for histology. To prevent bleeding after the biopsy, two hemostatic clips were successfully placed (MR conditional). There was no bleeding at the end of the procedure. A small hiatal hernia was present. Bilious fluid was found in the gastric fundus. Striped mildly erythematous mucosa without bleeding was found in the gastric antrum. Biopsies were taken with a cold forceps for Helicobacter pylori testing. Estimated blood loss was minimal. The first portion of the duodenum and second portion of the duodenum were normal. Impression: - LA Grade A reflux esophagitis. Rule out Duran's esophagus. Biopsied. Clips (MR conditional) were placed. - Small hiatal hernia. - Bilious gastric fluid. - Erythematous mucosa in the antrum. Biopsied. - Normal first portion of the duodenum and second portion of the duodenum. Recommendation: - Discharge patient to home (ambulatory). - Use Prilosec (omeprazole) 40 mg PO daily for 6 weeks. - Use one tablet Pepcid Complete (famotidine+calcium carbonate+ magnesium hydroxide) for symptoms every 24 hours indefinitely. Chew completely before swallowing. Procedure Code(s): --- Professional --- 73931, Esophagogastroduodenoscopy, flexible, transoral; with biopsy, single or multiple Diagnosis Code(s): --- Professional --- K21.0, Gastro-esophageal reflux disease with esophagitis K44.9, Diaphragmatic hernia without obstruction or gangrene K31.89, Other diseases of stomach and duodenum R10.13, Epigastric pain R12, Heartburn CPT copyright 2019 [employer]. All rights reserved. The codes documented in this report are preliminary and upon starbucks clerk review may be revised to meet current compliance requirements. Jose Hsieh MD Jose Hsieh MD 04/27/2021 3:54:38 PM Electronically signed by Jose Hsieh MD Number of Addenda: 0 Note Initiated On: 04/27/2021 3:32 PM Estimated Blood Loss: Estimated blood loss was minimal.
[2021-04-27 16:09] VITALS: BP 160/78
== END 2021-04-27 16:10 | disposition home or self-care (01) ==
LOC: M OPP 12:36
PROVIDERS: ATTEND Surgery
DX: K21.00 Gastro-esophageal reflux disease with esophagitis, without bleeding (principal); K44.9 Diaphragmatic hernia without obstruction or gangrene; K31.89 Other diseases of stomach and duodenum; R10.13 Epigastric pain; J44.9 Chronic obstructive pulmonary disease, unspecified; I25.2 Old myocardial infarction; Z79.82 Long term (current) use of aspirin; Z79.899 Other long term (current) drug therapy; Z88.5 Allergy status to narcotic agent; Z88.8 Allergy status to other drugs, medicaments and biological substances; Z91.018 Allergy to other foods; Z87.891 Personal history of nicotine dependence
CPT/HCPCS: 43239; 88305; J3010

== ENCOUNTER → 2021-05-13 | Outpatient (CLI) | payer MEDICARE ==
[~2021-05-13] MED LIST changes: -NS 1,000 ML IV ONE
--- NOTE | 2021-05-13 16:07 | REP ---
INDICATION: PAIN LEFT HAND. COMPARISON: Left wrist, same day. TECHNIQUE: AP, lateral, and bilateral oblique views of the left hand were performed. 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 There is subluxation of the 1st metacarpal at the carpometacarpal joint consistent with chronic ligamentous injury. There is chondrocalcinosis of the triangular fibrocartilage of the wrist. There is abnormal widening of the DRUJ. IMPRESSION: 1. 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 2. There is subluxation of the 1st metacarpal at the CMC joint, consistent with chronic ligamentous injury. 3. There is chondrocalcinosis of the TFCC. <Electronically signed by Gene Hyatt > 05/13/21 [id number]
--- NOTE | 2021-05-13 16:13 | REP ---
INDICATION: PAIN LEFT WRSIT. COMPARISON: Left hand, same day. TECHNIQUE: PA lateral and bilateral oblique views of the left wrist. FINDINGS: There is multifocal arthropathy of the left wrist, most severe at the radiocarpal joint, the 1st scaphoid trapezial joint and the 1st carpal metacarpal joint. There is subluxation of the 1st metacarpal at the CMC joint, consistent with chronic ligamentous injury. There is abnormal widening of the DRUJ. There is chondrocalcinosis of the triangle fibrocartilage. There is no evidence of acute bony injury. IMPRESSION: 1. Multifocal arthropathy of the left wrist, as described. 2. There is subluxation of the 1st metacarpal at the CMC joint consistent with chronic ligamentous injury. 3. 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 <Electronically signed by Gene Hyatt > 05/13/21 [id number]
== END ==
LOC: M WUC 15:41
PROVIDERS: ATTEND Nurse Practitioner Family
DX: M25.532 Pain in left wrist (principal); M79.642 Pain in left hand

== ENCOUNTER → 2021-10-18 | Outpatient (CLI) | payer MEDICARE ==
--- NOTE | 2021-10-18 15:00 | REP ---
INDICATION: LEFT SIDED LOW BACK PAIN. COMPARISON: None. TECHNIQUE: Six views FINDINGS: The bones are demineralized. There is degenerative disc space narrowing at every level. There is anterior lipping at every level. There is a dextroconvex curve. Degenerative facet joint changes are seen bilaterally at every level. IMPRESSION: Moderate to severe chronic changes. <Electronically signed by Mike Oreilly > 10/18/21 [id number]
== END ==
LOC: M ADAMS 14:00
PROVIDERS: ATTEND Family Medicine
DX: M54.50 Low back pain, unspecified (principal)

== ENCOUNTER → 2021-12-21 | Outpatient (REF) | payer MEDICARE ==
[~2021-12-21] MED LIST changes: -D31000TA2 PO; +VITA100093 PO
== END ==
LOC: M SFHCADAM 15:24
PROVIDERS: ATTEND Family Medicine
DX: Z00.00 Encounter for general adult medical examination without abnormal findings (principal); Z79.899 Other long term (current) drug therapy

== ENCOUNTER → 2022-01-30 | Outpatient (CLI) | payer MEDICARE | LOC: M RAD 16:04 | PROVIDERS: ATTEND Family Medicine | DX: Z12.2 Encounter for screening for malignant neoplasm of respiratory organs (principal); Z87.891 Personal history of nicotine dependence ==

== ENCOUNTER → 2022-05-27 | Outpatient (CLI) | payer MEDICARE ==
[~2022-05-27] MED LIST changes: +ALBU2.5V10 INH; -ALBU83IN INH
[2022-05-27 09:27] LABS: BASO % 0.6 % (0.0-1.0); EOS # 0.3 10^3/uL (0.0-0.5); EOS % 3.7 % (0.0-3.0); HEMATOCRIT 36.5 % (36.0-47.0); HEMOGLOBIN 12.7 g/dl (12.0-15.5); LYMPH # 1.9 10^3/uL (1.5-5.0); LYMPH % 26.1 % (24.0-44.0); MEAN CORPUSCULAR HEMOGLOBIN 33.4 pg (27.0-33.0); MEAN CORPUSCULAR HGB CONC 34.8 g/dl (32.0-36.5); MEAN CORPUSCULAR VOLUME 96.1 fl (80.0-96.0); MONO # 0.6 10^3/uL (0.0-0.8); MONO % 8.2 % (2.0-8.0); NEUTROPHILS # 4.4 10^3/uL (1.5-8.5); PLATELET COUNT, AUTOMATED 257 10^3/uL (150-450); WHITE BLOOD COUNT 7.2 10^3/uL (4.0-10.0)
[2022-05-27 10:06] LABS: ALBUMIN 3.2 GM/DL (3.2-5.2); BILIRUBIN,TOTAL 0.3 MG/DL (0.2-1.0); CHOLESTEROL RISK RATIO 5.04 (<5); CREATININE FOR GFR 1.01 MG/DL (0.55-1.30); GLOMERULAR FILTRATION RATE 56.7 (>39); POTASSIUM SERUM 3.9 MEQ/L (3.5-5.1); THYROID STIMULATING HORMONE 2.19 uIU/ML (0.358-3.740); TOTAL PROTEIN 7.1 GM/DL (6.4-8.2)
== END ==
LOC: M LAB 08:47
PROVIDERS: ATTEND Family Medicine
DX: Z00.00 Encounter for general adult medical examination without abnormal findings (principal); Z79.82 Long term (current) use of aspirin; Z79.899 Other long term (current) drug therapy

== ENCOUNTER → 2022-08-02 | Outpatient (REF) | payer MEDICARE | LOC: M SFHCADAM 12:47 | PROVIDERS: ATTEND Family Medicine | DX: R19.7 Diarrhea, unspecified (principal) ==

== ENCOUNTER → 2023-02-24 | Outpatient (CLI) | payer MEDICARE ==
[~2023-02-24] MED LIST changes: +CLOP75TA99 PO; -PLAV1TAB2 PO
[2023-02-24 09:54] LABS: BASO # 0.1 10^3/uL (0.0-0.2); BASO % 0.9 % (0.0-1.0); EOS # 0.4 10^3/uL (0.0-0.5); EOS % 3.4 % (0.0-3.0); HEMATOCRIT 41.1 % (36.0-47.0); LYMPH # 2.5 10^3/uL (1.5-5.0); LYMPH % 24.4 % (24.0-44.0); MEAN CORPUSCULAR HEMOGLOBIN 29.3 pg (27.0-33.0); MEAN CORPUSCULAR VOLUME 92.8 fl (80.0-96.0); NEUTROPHILS # 6.2 10^3/uL (1.5-8.5); PLATELET COUNT, AUTOMATED 315 10^3/uL (150-450); RED BLOOD COUNT 4.43 10^6/uL (4.00-5.40); WHITE BLOOD COUNT 10.2 10^3/uL (4.0-10.0)
[2023-02-24 09:56] LABS: CALCIUM LEVEL 8.9 MG/DL (8.3-10.6); CHOLESTEROL RISK RATIO 5.32 (<5); CREATININE FOR GFR 0.98 MG/DL (0.55-1.30); GLOMERULAR FILTRATION RATE 58.6 (>39); POTASSIUM SERUM 4.6 MMOL/L (3.5-5.1)
[2023-02-24 09:57] LABS: MEAN CORPUSCULAR HGB CONC 31.6 g/dl (32.0-36.5)
== END ==
LOC: M LAB 08:55
DX: I25.10 Atherosclerotic heart disease of native coronary artery without angina pectoris (principal)

== ENCOUNTER → 2023-05-29 | Outpatient (CLI) | payer MEDICARE | LOC: M RAD 16:15 | PROVIDERS: ATTEND Family Medicine | DX: Z87.891 Personal history of nicotine dependence (principal) ==

== ENCOUNTER → 2023-11-04 | Outpatient (REF) | payer MEDICARE ==
[~2023-11-04] MED LIST changes: +IPRA0.00 NEB; +MEDR4PAK PO
== END ==
LOC: M LAB REF 09:55
PROVIDERS: ATTEND Internal Medicine Gastroenterology
DX: K42.9 Umbilical hernia without obstruction or gangrene (principal)

== ENCOUNTER → 2023-11-05 | Outpatient (CLI) | payer MEDICARE ==
[2023-11-05 10:07] LABS: BASO % 0.5 % (0.0-1.0); EOS # 0.5 10^3/uL (0.0-0.5); EOS % 5.9 % (0.0-3.0); HEMATOCRIT 37.5 % (36.0-47.0); HEMOGLOBIN 12.2 g/dl (12.0-15.5); LYMPH % 23.5 % (24.0-44.0); MEAN CORPUSCULAR HGB CONC 32.5 g/dl (32.0-36.5); MEAN CORPUSCULAR VOLUME 89.3 fl (80.0-96.0); MONO # 0.6 10^3/uL (0.0-0.8); MONO % 6.8 % (2.0-8.0); NEUTROPHILS # 5.4 10^3/uL (1.5-8.5); NEUTROPHILS % 62.6 % (36.0-66.0); PLATELET COUNT, AUTOMATED 342 10^3/uL (150-450); WHITE BLOOD COUNT 8.7 10^3/uL (4.0-10.0)
[2023-11-05 10:10] LABS: PERCENT SATURATION 15.5 % (13.2-45.0)
[2023-11-05 10:12] LABS: FERRITIN 150.4 NG/ML (7.3-270.7)
[2023-11-07 11:13] LABS: IGASUB2 241.3 mg/dL (73.2-301.2); IGASUB3 31.7 mg/dL (13.4-97.9)
== END ==
LOC: M LAB 08:21
PROVIDERS: ATTEND Internal Medicine Gastroenterology
DX: K42.9 Umbilical hernia without obstruction or gangrene (principal); Z86.39 Personal history of other endocrine, nutritional and metabolic disease

== ENCOUNTER → 2023-11-23 | Outpatient (CLI) | payer MEDICARE ==
[2023-11-23 10:06] LABS: CREATININE FOR GFR 0.97 MG/DL (0.55-1.30); GLOMERULAR FILTRATION RATE 59.1 (>39)
== END ==
LOC: M LAB 08:42
PROVIDERS: ATTEND Surgery
DX: K43.9 Ventral hernia without obstruction or gangrene (principal)

== ENCOUNTER → 2023-11-27 | Outpatient (CLI) | payer MEDICARE ==
[~2023-11-27] MED LIST changes: +GASTROGRAFIN SOLUTION 30ML As Ordered ONE; +ISOVUE-370 76% 100ML VIAL As Ordered ONE
== END ==
LOC: M RAD 08:58
PROVIDERS: ATTEND Surgery
DX: K43.9 Ventral hernia without obstruction or gangrene (principal)
CPT/HCPCS: 74178; Q9963; Q9967

== ENCOUNTER 2024-02-07 08:12 | Day surgery (SDC) | payer MEDICARE ==
[~2024-02-07] VITALS: Ht 152.4 cm; Wt 86.5 kg
[~2024-02-07 08:12] MED LIST changes: +CREO3600 PO; +ESOM20CA25 PO; -GASTROGRAFIN SOLUTION 30ML As Ordered ONE; -ISOVUE-370 76% 100ML VIAL As Ordered ONE; +ONDA-83 PO
[2024-02-07] MEDS ORDERED: LR 1,000 ML IV SCH (08:25)
[2024-02-07] MEDS ORDERED: LIDOCAINE 2% 100MG/5ML SDV (FOR ANES.) As Ordered ONE (08:56)
[2024-02-07] MEDS ORDERED: ONDANSETRON 4MG 2ML VIAL As Ordered ONE (08:56)
[2024-02-07] MEDS ORDERED: ROCURONIUM BROMIDE 50MG/5ML VIAL As Ordered ONE (08:56)
[2024-02-07] MEDS ORDERED: fentaNYL 100 MCG/2 ML INJECTION As Ordered ONE (08:56)
[2024-02-07] MEDS ORDERED: propofoL 200 MG/20 ML VIAL As Ordered ONE (08:56)
[2024-02-07] MEDS ORDERED: KETOROLAC 60MG 2ML VIAL As Ordered ONE (09:00)
[2024-02-07] MEDS ORDERED: SUGAMMADEX SODIUM 500 MG/5 ML VIAL (BRIDION) As Ordered ONE (09:01)
[2024-02-07] MEDS ORDERED: INDOCYANINE GREEN 25MG VIAL (IC-GREEN) As Ordered ONE (09:14)
[2024-02-07] MEDS ORDERED: MIDAZOLAM INJ 2MG/2ML VIAL As Ordered ONE (12:18)
[2024-02-07] MEDS ORDERED: HYDR-3713 PO (12:25)
[2024-02-07] MEDS: ceFAZolin SOD 2 GM in IV 1 EA IV ONE (12:28)
[2024-02-07] MEDS ORDERED: METOPROLOL 5 MG/5 ML VIAL As Ordered ONE (12:37)
[2024-02-07] MEDS: HEPARIN SOD (PORCINE) 5000UNITS/ML 1ML VIAL/SYRINGE SQ ONE (12:58)
[2024-02-07] MEDS ORDERED: LABETALOL 100MG/20ML VIAL As Ordered ONE (14:32)
[2024-02-07] MEDS ORDERED: ONDANSETRON 4MG 2ML VIAL IV PRN (15:20)
[2024-02-07] MEDS ORDERED: MEPERIDINE 25 MG/ML 1ML VIAL IV PRN (15:20)
[2024-02-07] MEDS ORDERED: fentaNYL 100 MCG/2 ML INJECTION IV PRN (15:20)
[2024-02-07] MEDS ORDERED: diphenhydrAMINE 50MG/ML VIAL IV PRN (15:20)
[2024-02-07] MEDS ORDERED: dexmedeTOMIDine (4MCG/ML)200MCG/50ML BTL (PRECEDEX) As Ordered ONE (15:42)
[2024-02-07] MEDS: oxyCODONE 5MG TAB PO PRN (15:46)
[2024-02-07] MEDS: LR 1,000 ML IV SCH (15:46)
[2024-02-07] MEDS: HYDROMORPHONE HCL 0.5 MG/ 0.5 ML SYRINGE IV PRN (15:47)
[2024-02-07] MEDS: METOCLOPRAMIDE INJ 10MG/2ML VIAL IV PRN (17:20)
[2024-02-07] MEDS ORDERED: IPRATROPIUM 0.5MG/ALBUTEROL 2.5MG INH SOL UD 3ML (DUONEB) As Ordered ONE (17:23)
[2024-02-07] MEDS: IPRATROPIUM 0.5MG/ALBUTEROL 2.5MG INH SOL UD 3ML (DUONEB) NEB ONE (17:26)
[2024-02-07 18:49] VITALS: BP 129/61; TEMP 96.9; O2SAT 97
[2024-02-12] MEDS ORDERED: CLOP75TA2 PO (14:23)
== END 2024-02-07 19:05 | disposition home or self-care (01) ==
LOC: M SDC 08:12
PROVIDERS: ATTEND Surgery
DX: K43.6 Other and unspecified ventral hernia with obstruction, without gangrene (principal); K42.0 Umbilical hernia with obstruction, without gangrene; J44.9 Chronic obstructive pulmonary disease, unspecified; I10 Essential (primary) hypertension; I25.2 Old myocardial infarction; Z79.899 Other long term (current) drug therapy; Z79.51 Long term (current) use of inhaled steroids; Z88.5 Allergy status to narcotic agent; Z88.8 Allergy status to other drugs, medicaments and biological substances; K21.9 Gastro-esophageal reflux disease without esophagitis; Z87.891 Personal history of nicotine dependence; Z90.49 Acquired absence of other specified parts of digestive tract
CPT/HCPCS: 49594; C1781; J0665; J0690; J1100; J1170; J1885; J1920; J2250; J2405; J2765; J3010; Q9968

== ENCOUNTER 2024-07-10 07:39 | Day surgery (SDC) | payer MEDICARE ==
[~2024-07-10] VITALS: Ht 152.4 cm; Wt 89.2 kg
[2024-07-10] MEDS: NS 1,000 ML IV ONE (06:00)
[~2024-07-10 07:39] MED LIST changes: +CLOP75TA2 PO; +HYDR-3713 PO; +SPIR12.9
[2024-07-10] MEDS ORDERED: propofoL 200 MG/20 ML VIAL As Ordered ONE (09:54)
[2024-07-10 10:40] VITALS: BP 128/58; TEMP 97.3; O2SAT 98
== END 2024-07-10 10:57 | disposition home or self-care (01) ==
LOC: M OPP 07:39
PROVIDERS: ATTEND Internal Medicine Gastroenterology
DX: R19.4 Change in bowel habit (principal); K57.30 Diverticulosis of large intestine without perforation or abscess without bleeding; D12.0 Benign neoplasm of cecum; D12.8 Benign neoplasm of rectum; R19.7 Diarrhea, unspecified; I25.2 Old myocardial infarction; I10 Essential (primary) hypertension; E78.5 Hyperlipidemia, unspecified; R12 Heartburn; Z88.5 Allergy status to narcotic agent; Z88.8 Allergy status to other drugs, medicaments and biological substances; Z79.899 Other long term (current) drug therapy; Z87.891 Personal history of nicotine dependence

== ENCOUNTER 2024-08-19 13:41 | Observation (INO) | payer MEDICARE ==
[~2024-08-19] VITALS: Ht 152.4 cm; Wt 90.0 kg
[2024-08-19] MEDS ORDERED: ISOVUE-370 76% 100ML VIAL As Ordered ONE (15:35)
[2024-08-19 16:27] LABS: BASO % 0.4 % (0.0-1.0); EOS # 0.4 10^3/uL (0.0-0.5); EOS % 3.8 % (0.0-3.0); HEMATOCRIT 38.3 % (36.0-47.0); HEMOGLOBIN 12.3 g/dl (12.0-15.5); LYMPH # 2.2 10^3/uL (1.5-5.0); LYMPH % 20.7 % (24.0-44.0); MEAN CORPUSCULAR HEMOGLOBIN 29.6 pg (27.0-33.0); MEAN CORPUSCULAR HGB CONC 32.1 g/dl (32.0-36.5); MEAN CORPUSCULAR VOLUME 92.1 fl (80.0-96.0); MONO # 0.8 10^3/uL (0.0-0.8); MONO % 7.8 % (2.0-8.0); NEUTROPHILS # 7.1 10^3/uL (1.5-8.5); NEUTROPHILS % 66.8 % (36.0-66.0); PLATELET COUNT, AUTOMATED 350 10^3/uL (150-450); RED BLOOD COUNT 4.16 10^6/uL (4.00-5.40); WHITE BLOOD COUNT 10.7 10^3/uL (4.0-10.0)
[2024-08-19] MEDS ORDERED: ACETAMINOPHEN 325 MG TAB PO PRN (17:35)
[2024-08-19] MEDS ORDERED: HOME MED LIST COMPLETE! XX SCH (18:30)
[2024-08-19] MEDS: NS 500 ML IV ONE (18:33)
[2024-08-19] MEDS: CREON-12 CAPSULE (PANCRELIPASE) PO SCH (19:34)
[2024-08-19 19:51] LABS: HEMOGLOBIN A1c 5.6 % (4.0-6.0)
[2024-08-19 19:55] VITALS: BP 130/62; TEMP 98.1; O2SAT 97
[2024-08-19] MEDS: NS 1,000 ML IV SCH (20:07)
[2024-08-19 20:10] LABS: ALBUMIN 3.4 G/DL (3.2-5.2); ALKALINE PHOSPHATASE 118 U/L (35-104); ALT/SGPT 17 U/L (7.0-40); AST/SGOT 10 U/L (<34); BILIRUBIN,TOTAL 0.3 MG/DL (0.3-1.2); BLOOD UREA NITROGEN 15 MG/DL (9-23); CALCIUM LEVEL 8.5 MG/DL (8.3-10.6); CARBON DIOXIDE LEVEL 26 MMOL/L (20-31); CHLORIDE LEVEL 107 MMOL/L (98-107); CREATININE FOR GFR 0.91 MG/DL (0.55-1.30); GLOMERULAR FILTRATION RATE > 60.0 (>39); GLUCOSE, FASTING 98 MG/DL (74-106); POTASSIUM SERUM 3.9 MMOL/L (3.5-5.1); SODIUM LEVEL 141 MMOL/L (136-145)
[2024-08-19] MEDS: OYSTER SHELL CALCIUM 500 MG TAB PO SCH (20:14)
[2024-08-19] MEDS: ASPIRIN 81MG ENTERIC TABLET PO SCH (20:14)
[2024-08-19] MEDS: METOPROLOL TART 50 MG TAB PO SCH (20:14)
[2024-08-19] MEDS: VITAMIN D 1,000 INTERNATIONAL UNITS TABLET PO SCH (20:15)
[2024-08-19] MEDS: SYMBICORT 160/4.5MCG INHALER 6GM INH SCH (20:57)
[2024-08-20 05:30] LABS: HEMATOCRIT 32.2 % (36.0-47.0); HEMOGLOBIN 10.4 g/dl (12.0-15.5); MEAN CORPUSCULAR HEMOGLOBIN 29.2 pg (27.0-33.0); MEAN CORPUSCULAR VOLUME 90.4 fl (80.0-96.0); PLATELET COUNT, AUTOMATED 262 10^3/uL (150-450); RED BLOOD COUNT 3.56 10^6/uL (4.00-5.40); WHITE BLOOD COUNT 8.4 10^3/uL (4.0-10.0)
[2024-08-20 05:32] LABS: MEAN CORPUSCULAR HGB CONC 32.3 g/dl (32.0-36.5)
[2024-08-20 05:34] LABS: ALBUMIN 2.9 G/DL (3.2-5.2); ALKALINE PHOSPHATASE 107 U/L (35-104); ALT/SGPT 15 U/L (7.0-40); AST/SGOT < 8 U/L (<34); BILIRUBIN,TOTAL 0.2 MG/DL (0.3-1.2); BLOOD UREA NITROGEN 16 MG/DL (9-23); CALCIUM LEVEL 8.7 MG/DL (8.3-10.6); CARBON DIOXIDE LEVEL 25 MMOL/L (20-31); CHLORIDE LEVEL 109 MMOL/L (98-107); CREATININE FOR GFR 0.98 MG/DL (0.55-1.30); GLOMERULAR FILTRATION RATE 58.4 (>39); GLUCOSE, FASTING 123 MG/DL (74-106); POTASSIUM SERUM 3.6 MMOL/L (3.5-5.1); PROCALCITONIN <0.04 ng/ml; SODIUM LEVEL 139 MMOL/L (136-145); TOTAL PROTEIN 6.2 G/DL (5.7-8.2)
[2024-08-20 06:31] VITALS: BP 138/71; TEMP 97.9; O2SAT 95
[2024-08-20] MEDS: TIOTROPIUM INHALER/CAPSULE (SPIRIVA) INH SCH (07:40)
[2024-08-20 08:22] VITALS: BP 130/73
[2024-08-20] MEDS: PANTOPRAZOLE 40MG TAB (PROTONIX) PO SCH (08:22)
[2024-08-20] MEDS: EZETIMIBE 10MG TABLET (ZETIA) PO SCH (08:22)
[2024-08-20 08:33] LABS: MAGNESIUM LEVEL 1.8 MG/DL (1.8-2.4)
[2024-08-20 12:00] VITALS: BP 129/74; TEMP 97.7; O2SAT 95
[2024-08-20] MEDS ORDERED: PANT40TA29 PO (13:20)
== END 2024-08-20 15:21 | disposition home or self-care (01) ==
LOC: M ED 13:41 → M ED INP 13:42 → M MSPAV 19:56
PROVIDERS: ADMIT Hospitalist; ATTEND Hospitalist
DX: I95.1 Orthostatic hypotension (principal); I25.2 Old myocardial infarction; I25.10 Atherosclerotic heart disease of native coronary artery without angina pectoris; J44.9 Chronic obstructive pulmonary disease, unspecified; E78.5 Hyperlipidemia, unspecified; K86.1 Other chronic pancreatitis; D72.829 Elevated white blood cell count, unspecified; Z79.82 Long term (current) use of aspirin; Z79.899 Other long term (current) drug therapy; Z91.018 Allergy to other foods; Z88.5 Allergy status to narcotic agent; Z88.8 Allergy status to other drugs, medicaments and biological substances
CPT/HCPCS: 36415; 70450; 70496; 70498; 71045; 80047; 80053; 81001; 83036; 83605; 83735; 84145; 84443; 84484; 85025; 85027; 86140; 87040; 87641; 93005; 93041; 93306; 94640; 94664; 94760; 96374; 97161; 99285; G0378; Q9967

== ENCOUNTER 2024-08-29 12:51 | Outpatient (RCR) | payer MEDICARE ==
[~2024-08-29 12:51] MED LIST changes: +PANT40TA29 PO
== END 2024-09-13 ==
LOC: M PT 12:51
PROVIDERS: ATTEND Hospitalist
DX: H81.4 Vertigo of central origin (principal); R55 Syncope and collapse

== ENCOUNTER → 2024-09-29 | Outpatient (CLI) | payer MEDICARE | LOC: M RAD 07:53 | PROVIDERS: ATTEND Family Medicine | DX: Z12.2 Encounter for screening for malignant neoplasm of respiratory organs (principal); Z87.891 Personal history of nicotine dependence ==

== ENCOUNTER → 2024-10-29 | Outpatient (CLI) | payer MEDICARE ==
[2024-10-29 11:56] LABS: ALBUMIN 3.7 G/DL (3.2-5.2); ALKALINE PHOSPHATASE 127 U/L (35-104); ALT/SGPT 20 U/L (7.0-40); AST/SGOT 15 U/L (<34); BILIRUBIN,TOTAL 0.3 MG/DL (0.3-1.2); BLOOD UREA NITROGEN 18 MG/DL (9-23); CALCIUM LEVEL 9.3 MG/DL (8.3-10.6); CARBON DIOXIDE LEVEL 28 MMOL/L (20-31); CHLORIDE LEVEL 103 MMOL/L (98-107); CHOLESTEROL LEVEL 149 MG/DL (<200); CHOLESTEROL RISK RATIO 5.45 (<5); CREATININE FOR GFR 0.93 MG/DL (0.55-1.30); GLOMERULAR FILTRATION RATE > 60.0 (>39); GLUCOSE, FASTING 97 MG/DL (74-106); HDL CHOLESTEROL 27.3 MG/DL (>40); LDL CHOLESTEROL 55.1 MG/DL (<100); NON-HDL-C 121.7 MG/DL; POTASSIUM SERUM 4.4 MMOL/L (3.5-5.1); SODIUM LEVEL 142 MMOL/L (136-145); THYROID STIMULATING HORMONE 1.564 uIU/ML (0.55-4.78); TOTAL PROTEIN 7.3 G/DL (5.7-8.2); TRIGLYCERIDES LEVEL 333 MG/DL (<150)
[2024-10-29 12:02] LABS: BASO # 0.1 10^3/uL (0.0-0.2); BASO % 0.7 % (0.0-1.0); EOS # 0.4 10^3/uL (0.0-0.5); EOS % 4.2 % (0.0-3.0); HEMATOCRIT 42.6 % (36.0-47.0); HEMOGLOBIN 13.9 g/dl (12.0-15.5); LYMPH % 21.3 % (24.0-44.0); MEAN CORPUSCULAR HGB CONC 32.6 g/dl (32.0-36.5); MEAN CORPUSCULAR VOLUME 88.9 fl (80.0-96.0); MONO # 0.7 10^3/uL (0.0-0.8); MONO % 7.6 % (2.0-8.0); NEUTROPHILS # 6.1 10^3/uL (1.5-8.5); NEUTROPHILS % 65.7 % (36.0-66.0); PLATELET COUNT, AUTOMATED 329 10^3/uL (150-450); RED BLOOD COUNT 4.79 10^6/uL (4.00-5.40); WHITE BLOOD COUNT 9.2 10^3/uL (4.0-10.0)
== END ==
LOC: M LAB 09:55
PROVIDERS: ATTEND Family Medicine
DX: Z00.00 Encounter for general adult medical examination without abnormal findings (principal); Z79.899 Other long term (current) drug therapy

== ENCOUNTER 2024-11-05 15:49 | Emergency (ER) | payer MEDICARE ==
[~2024-11-05] VITALS: Ht 162.6 cm; Wt 87.3 kg
[2024-11-05] MEDS: LIDOCAINE 5% (LIDODERM) PATCH TD ONE (16:27)
[2024-11-05] MEDS: ACETAMINOPHEN *IV* 1,000 MG in IV 1 EA IV ONE (16:28)
[2024-11-05 17:00] LABS: LIPASE 19 U/L (12-53)
[2024-11-05 17:02] LABS: ALBUMIN 3.5 G/DL (3.2-5.2); ALKALINE PHOSPHATASE 111 U/L (35-104); ALT/SGPT 23 U/L (7.0-40); AST/SGOT 21 U/L (<34); BILIRUBIN,DIRECT 0.1 MG/DL (<0.4); BILIRUBIN,TOTAL 0.5 MG/DL (0.3-1.2); BLOOD UREA NITROGEN 17 MG/DL (9-23); CALCIUM LEVEL 8.7 MG/DL (8.3-10.6); CARBON DIOXIDE LEVEL 26 MMOL/L (20-31); CHLORIDE LEVEL 105 MMOL/L (98-107); CREATININE FOR GFR 0.84 MG/DL (0.55-1.30); GLOMERULAR FILTRATION RATE > 60.0 (>39); GLUCOSE, FASTING 101 MG/DL (74-106); POTASSIUM SERUM 4.6 MMOL/L (3.5-5.1); SODIUM LEVEL 138 MMOL/L (136-145); TOTAL PROTEIN 6.9 G/DL (5.7-8.2)
[2024-11-05 17:07] LABS: BASO # 0.1 10^3/uL (0.0-0.2); BASO % 0.5 % (0.0-1.0); EOS # 0.1 10^3/uL (0.0-0.5); EOS % 1.3 % (0.0-3.0); HEMATOCRIT 39.2 % (36.0-47.0); HEMOGLOBIN 12.8 g/dl (12.0-15.5); LYMPH # 1.7 10^3/uL (1.5-5.0); MEAN CORPUSCULAR HEMOGLOBIN 28.9 pg (27.0-33.0); MEAN CORPUSCULAR VOLUME 88.5 fl (80.0-96.0); MONO # 0.6 10^3/uL (0.0-0.8); MONO % 5.7 % (2.0-8.0); NEUTROPHILS # 8.5 10^3/uL (1.5-8.5); NEUTROPHILS % 76.9 % (36.0-66.0); PLATELET COUNT, AUTOMATED 289 10^3/uL (150-450); RED BLOOD COUNT 4.43 10^6/uL (4.00-5.40); WHITE BLOOD COUNT 11.1 10^3/uL (4.0-10.0)
[2024-11-05 17:08] LABS: MEAN CORPUSCULAR HGB CONC 32.7 g/dl (32.0-36.5)
[2024-11-05] MEDS ORDERED: ISOVUE-370 76% 100ML VIAL As Ordered ONE (17:17)
[2024-11-05] MEDS ORDERED: LIDO5DIS41 TD (17:58)
[2024-11-05] MEDS: KETOROLAC 30 MG/ML 1ML VIAL IV ONE (18:11)
[2024-11-05 18:34] VITALS: BP 114/68; TEMP 98.1; O2SAT 97
== END 2024-11-05 18:42 | disposition home or self-care (01) ==
LOC: M ED 15:49 → EDBD 15:49 → M ED 18:42
DX: M54.50 Low back pain, unspecified (principal); I25.2 Old myocardial infarction; J44.9 Chronic obstructive pulmonary disease, unspecified; E78.5 Hyperlipidemia, unspecified; M48.061 Spinal stenosis, lumbar region without neurogenic claudication; Z87.891 Personal history of nicotine dependence; Z88.5 Allergy status to narcotic agent; Z88.8 Allergy status to other drugs, medicaments and biological substances; Z91.018 Allergy to other foods; Z79.82 Long term (current) use of aspirin; Z79.899 Other long term (current) drug therapy
CPT/HCPCS: 74177; 80048; 80076; 83690; 85025; 96365; 96375; 99284; J0131; J1885; Q9967

== ENCOUNTER → 2024-11-10 | Outpatient (CLI) | payer MEDICARE ==
[~2024-11-10] MED LIST changes: +LIDO5DIS41 TD
== END ==
LOC: M ADAMS 13:09
PROVIDERS: ATTEND Family Medicine
DX: M47.896 Other spondylosis, lumbar region (principal); M25.552 Pain in left hip; M54.50 Low back pain, unspecified

== ENCOUNTER → 2024-12-12 | Outpatient (CLI) | payer MEDICARE | LOC: M RAD 09:31 | PROVIDERS: ATTEND Physician Assistant Medical | DX: R19.4 Change in bowel habit (principal) ==

== ENCOUNTER → 2025-01-09 | Outpatient (CLI) | payer MEDICARE | LOC: M RAD 10:09 | PROVIDERS: ATTEND Physician Assistant Medical | DX: R11.2 Nausea with vomiting, unspecified (principal) ==

== ENCOUNTER → 2025-03-02 | Outpatient (CLI) | payer MEDICARE ==
[~2025-03-02] MED LIST changes: +LIDO1ADH93 TD; -LIDO5DIS41 TD
[2025-03-02 09:07] LABS: BASO # 0.1 10^3/uL (0.0-0.2); BASO % 0.6 % (0.0-1.0); EOS # 0.3 10^3/uL (0.0-0.5); EOS % 3.4 % (0.0-3.0); HEMATOCRIT 35.7 % (36.0-47.0); HEMOGLOBIN 12.5 g/dl (12.0-15.5); LYMPH # 1.8 10^3/uL (1.5-5.0); LYMPH % 19.9 % (24.0-44.0); MEAN CORPUSCULAR VOLUME 94.2 fl (80.0-96.0); MONO # 0.9 10^3/uL (0.0-0.8); MONO % 9.4 % (2.0-8.0); NEUTROPHILS % 66.4 % (36.0-66.0); PLATELET COUNT, AUTOMATED 266 10^3/uL (150-450); RED BLOOD COUNT 3.79 10^6/uL (4.00-5.40); WHITE BLOOD COUNT 9.1 10^3/uL (4.0-10.0)
[2025-03-02 09:39] LABS: ALBUMIN 3.3 G/DL (3.2-5.2); BILIRUBIN,TOTAL 0.3 MG/DL (0.3-1.2); CALCIUM LEVEL 8.6 MG/DL (8.3-10.6); CREATININE FOR GFR 0.94 MG/DL (0.55-1.30); GLOMERULAR FILTRATION RATE 61.7 (>39); TOTAL PROTEIN 6.4 G/DL (5.7-8.2)
[2025-03-02 09:45] LABS: THYROID STIMULATING HORMONE 2.1 uIU/ML (0.55-4.78)
[2025-03-02 09:46] LABS: FREE T4 0.98 NG/DL (0.89-1.76)
== END ==
LOC: M LAB 08:17
PROVIDERS: ATTEND Physician Assistant Medical
DX: R11.2 Nausea with vomiting, unspecified (principal); E07.9 Disorder of thyroid, unspecified